=== PATIENT | female | born 1985 | race Caucasian/White ===

== ENCOUNTER 2018-06-27 16:47 | Emergency (ER) | payer BC ==
--- NOTE | 2018-06-27 18:01 | RAD ---
Indication: 11 weeks 4 days gestation based on April 07, 2018 LMP. Comparison: No relevant prior exams available on the [facility] for comparison. Technique: Transvaginal pelvic ultrasound. obstetrical ultrasound. Report: 10.7 x 5.8 x 6.8 cm anteverted uterus. Solitary intrauterine gestational sac with mean diameter of 3.70 cm. Single pole visualized with 1.59 cm crown-rump length corresponding to 8 weeks 0 days gestation. No movement or cardiac activity visualized. No yolk sac visualized. No perigestational hemorrhage evident. Small volume of fluid visualized at the cervix. Physiologic trace volume of free fluid in the cul-de-sac. Unremarkable 2.3 x 1.9 x 1.2 cm RIGHT ovary and 2.8 x 1.4 x 1.1 cm LEFT ovary. No extraovarian adnexal region lesions evident. IMPRESSION: #. The constellation of findings is consistent with a nonviable first trimester intrauterine gestation.
--- NOTE | 2018-06-27 18:21 | ED ---
- HPI Summary HPI Summary: Patient is a 32 y/o F w/ c/o vaginal bleeding onsetting an hour ago. She is 11 weeks , A0. LNMP was four months ago, patient describes bleeding as period-like, noting deanna blood and large clots. She has not had US yet, denies complications with previous . Patient takes a pre-karthikeyan vitamin, goes to [facility]. She denies abdominal pain but notes some cramping. Lower back soreness is also endorsed. On triage, associated severity is 2/10, nothing is noted to aggravate/alleviate Sx. Home medications and allergies are reviewed. - History of Current Complaint Chief Complaint: EDOBProblems Stated Complaint: 11 WKS PREG/BLEEDING Time Seen by Provider: 06/27/18 17:14 Hx Obtained From: Patient Onset/Duration: Started Hours Ago - 1 hour, Still Present Timing: Constant, Lasting Hours - 1 hour Severity: Mild - 2/10 Current Severity: Mild - 2/10 Pain Intensity: 2 Character: Cramping Aggravating Factors: Nothing Alleviating Factors: Nothing Associated Signs and Symptoms: Positive: Back Pain - lower back soreness, Vaginal Bleeding or Discharge - bleeding - Assessment SAB: 0 IEA: 0 - Additional Pertinent History Maternal Blood Type and Rh: O Positive - Allergies/Home Medications Allergies/Adverse Reactions: Allergies Allergy/AdvReac Type Severity Reaction Status Date / Time No Known Allergies Allergy Verified 02/21/16 22:21 PMH/Surg Hx/FS Hx/Imm Hx Sensory History: Denies: Hx Legally Blind, Hx Deafness Opthamlomology History: Denies: Hx Legally Blind EENT History: Denies: Hx Deafness Infectious Disease History: No Infectious Disease History: Denies: Traveled Outside the [place] in Last 30 Days - Family History Known Family History: Negative: Blood Disorder - Social History Alcohol Use: None Substance Use Type: Reports: None Smoking Status (MU): Never Smoked Tobacco Review of Systems Negative: Abdominal Pain Positive: other - vaginal bleeding and abdominal cramping Positive: Other - lower back soreness All Other Systems Reviewed And Are Negative: Yes Physical Exam - Summary Physical Exam Summary: Appearance: Well appearing, no pain distress Skin: warm, dry, reflects adequate perfusion Head/face: normal Eyes: EOMI, STEPHON ENT: mucous membranes moist Neck: supple, non-tender Respiratory: CTA, breath sounds present Cardiovascular: RRR, pulses symmetrical Abdomen: non-tender, soft Bowel Sounds: present Musculoskeletal: normal, strength/ROM intact Neuro: normal, sensory motor intact, A&Ox3 Pelvic Exam: minimal dark blood, cervix closed, one clot at cervix. - Physical Exam Triage Information Reviewed: Yes Vital Signs On Initial Exam: Initial Vitals Temp Pulse Resp BP Pulse Ox 97.3 F 102 16 144/88 98 06/27/18 16:49 06/27/18 16:49 06/27/18 16:49 06/27/18 16:49 06/27/18 16:49 Vital Signs Reviewed: Yes Diagnostics - Vital Signs Vital Signs Temp Pulse Resp BP Pulse Ox 06/27/18 16:49 97.3 F 102 16 144/88 98 - Laboratory Lab Statement: Any lab studies that have been ordered have been reviewed, and results considered in the medical decision making process. - Ultrasound No standard instances Ultrasound Interpretation Completed By: Radiologist Summary of Ultrasound Findings: IMPRESSION: #. The constellation of findings is consistent with a nonviable first trimester. intrauterine gestation. This report was reviewed by ED physician. Re-Evaluation - Re-Evaluation First Eval Re-Evaluation Time: 18:24 Comment: Results of US were discussed with patient. She will be discharged and follow up with [facility]. Course/Dx - Course Course Of Treatment: Ultrasound consistent with blighted ovum. On prior laboratories patient was found to be O+. She is having minimal bleeding and discomfort at this time. 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 - Differential Diagnosis/HQI/PQRI: Incomplete , Missed , Spontaneous , Threatened , Ectopic - Diagnoses Provider Diagnoses: Blighted ovum, Incomplete Discharge - Sign-Out/Discharge Documenting (check all that apply): Patient Departure - discharge - Discharge Plan Condition: Improved Disposition: HOME Patient Education Materials: Miscarriage (ED) Referrals: Mere Valdez NP [Primary Care Provider] - Additional Instructions: Follow up with [facility] [place]. Return with heavy bleeding, lightheadedness/ weakness, uncontrolled pain, worse or other concerns as discussed. Tylenol, ibuprofen and fluids may help. - Billing Disposition and Condition Condition: IMPROVED Disposition: Home - Attestation Statements Document Initiated by Scribe: Yes Documenting Scribe: Marko Francisco Provider For Whom Scribe is Documenting (Include Credential): Dr Corral Scribe Attestation: I, Marko Francisco, scribed for Dr Corral on 06/27/18 at 1905. Scribe Documentation Reviewed: Yes Provider Attestation: The documentation as recorded by the scribe, Marko Francisco accurately reflects the service I personally performed and the decisions made by me, Dr Corral
[2018-06-27 18:52] VITALS: BP 127/97
== END 2018-06-27 18:51 | disposition home or self-care (01) ==
LOC: ED 16:47
DX: O02.0 Blighted ovum and nonhydatidiform mole (principal); O08.9 Unspecified complication following an ectopic and molar pregnancy; O03.4 Incomplete spontaneous abortion without complication; M54.9 Dorsalgia, unspecified; R42 Dizziness and giddiness
CPT/HCPCS: 36415; 76801; 84702; 99282

== ENCOUNTER 2019-11-23 05:41 | Inpatient (IN) | payer BC ==
--- OUTSIDE RECORDS SUMMARY | 2019-11-23 05:45 | XMS REPORT | Continuity of Care Document ---
:1985 External Reference #:[id number] Author Name Td Clark M.D. 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 0.4-25mg Chewtabs Aspirin 1 by mouth every Unknown 81mg Chewtabs day Medications Administered in Office Medication SIG Qnty Indications Ordering Provider Date PT SCRN Tbco Id as Non User Nisha Renner CNM 06/30/2018 Injection PT SCRN Tbco Id as Non User Lissette Fraser MD 10/09/2017 Injection Immunizations CPT Code Status Date Vaccine Lot # [id number] Given 09/15/2019 Tetnus, Diptheria Toxoids And Acellular Pertussis, [id number] PT > 7Yrs Old [id number] Given 01/04/2016 Tetnus, Diptheria Toxoids And Acellular Pertussis, [id number] PT > 7Yrs Old Vital Signs Date Vital Result Comment 05/13/2019 2:44pm BP Systolic 124 mmHg BP Diastolic 82 mmHg Height 63.5 inches 5'3.50" Weight 245.00 lb BMI (Body Mass Index) 42.7 kg/m2 Last Menstrual Period 0489434 3 Parity 1 06/30/2018 10:08am BP Systolic 128 mmHg BP Diastolic 76 mmHg Height 63.5 inches 5'3.50" Weight 236.00 lb BMI (Body Mass Index) 41.1 kg/m2 Last Menstrual Period [id number] 2 Parity 1 Results Test Acquired Date Facility Test Result H/L Range Note Laboratory test 09/15/2019 [facility] Glucose 1 HR 116 mg/dL Normal 70-160 1 [place] [address] Post Prandial [phone] CBC With No 09/15/2019 [facility] White Blood 10.6 Normal 3.5- 10.8 [place] [address] Count 10^3/uL [phone] Red Blood Count 3.81 10^6/uL Normal 3.70-4.87 Hemoglobin 11.3 g/dL Low 12.0-16.0 Hematocrit 34 % Low 35-47 Mean Corpuscular Volume 89 fL Normal 80-97 Mean Corpuscular Hemoglobin 30 pg Normal 27-31 Mean Corpuscular HGB Conc 33 g/dL Normal 31-36 Red Cell Distribution Width 14 % Normal 10-15 Platelet Count 298 10^3/uL Normal 150-450 Mean Platelet Volume 9.3 fL Normal 7.4-10.4 Tot Prot 24HR Urine 07/30/2019 [facility] Urine Collection 24 [place] [address] Time OB [phone] Urine Total Volume OB 1800 mL Ur TP Concentration Obstetric 8 mg/dL Ur Tot Protein/24Hr Obstetric 144 mg/24Hr Normal 0-165 CBC With No 07/06/2019 [facility] White Blood 11.4 10^3/uL High 3.5-10.8 [place] [address] Count [phone] Red Blood Count 4.23 10^6/uL Normal 3.70-4.87 Hemoglobin 12.3 g/dL Normal 12.0-16.0 Hematocrit 37 % Normal 35-47 Mean Corpuscular Volume 88 fL Normal 80-97 Mean Corpuscular Hemoglobin 29 pg Normal 27-31 Mean Corpuscular HGB Conc 33 g/dL Normal 31-36 Red Cell Distribution Width 14 % Normal 10-15 Platelet Count 295 10^3/uL Normal 150-450 Mean Platelet Volume 9.2 fL Normal 7.4-10.4 Laboratory test 07/06/2019 [facility] Uric Acid 4.5 mg/dL Normal 2.3-6.6 [address] [place] [address] [phone] Comp Metabolic 07/06/2019 [facility] Sodium 137 mmol/L Normal 135-145 Panel [place], [place] [id number] [phone] Potassium 4.0 mmol/L Normal 3.5-5.0 Chloride 106 mmol/L Normal 101-111 Co2 Carbon Dioxide 23 mmol/L Normal 22-32 Anion Gap 8 mmol/L Normal 2-11 Glucose 117 mg/dL High 70-100 Blood Urea Nitrogen 11 mg/dL Normal 6-24 Creatinine 0.55 mg/dL Normal 0.51-0.95 BUN/Creatinine Ratio 20.0 Normal 8-20 Calcium 9.6 mg/dL Normal 8.6-10.3 Total Protein 6.8 g/dL Normal 6.4-8.9 Albumin 3.9 g/dL Normal 3.2-5.2 Globulin 2.9 g/dL Normal 2-4 Albumin/Globulin Ratio 1.3 Normal 1-3 Total Bilirubin 0.30 mg/dL Normal 0.2-1.0 Alkaline Phosphatase 54 U/L Normal 34-104 Alt 9 U/L Normal 7-52 Ast 11 U/L Low 13-39 Egfr Non- 128.1 >60 Egfr 155.0 >60 3 Laboratory 06/17/2019 [facility] Glucose 1 HR 88 mg/dL Normal 70-160 4 [place] [address] Post Prandial [phone] Urine Drug 06/09/2019 [facility] Urine Negative 5 Comp 20 [place] [address] Amphetamine ng/mL [phone] Urine Barbiturates Negative ng/mL 6 Urine Benzodiazepines Negative ng/mL 7 Urine Cocaine Negative ng/mL 8 Urine Phencyclidine Negative ng/mL Cutoff: 25 Urine Tetrahydrocannabinol Negative ng/mL Cutoff: 50 9 Creatinine, Urine 165.8 mg/dL Specific [place] 1.016 pH 6.1 Oxidants Negative 10 Adulterants Comment Normal Codeine, Ur Not Detected ng/mL Cutoff: 25 11 Jrfihva-6-oqzr-glucuronide, Ur Not Detected ng/mL 12 Morphine, Ur Not Detected ng/mL Cutoff: 25 13 Nbpmbcyy-7-kezh-glucuronide, U Not Detected ng/mL 14 6-monoacetylmorphine, Ur Not Detected ng/mL Cutoff: 25 15 Hydrocodone, Ur Not Detected ng/mL Cutoff: 25 16 Norhydrocodone, Ur Not Detected ng/mL Cutoff: 25 17 Dihydrocodeine, Ur Not Detected ng/mL Cutoff: 25 18 Hydromorphone, Ur Not Detected ng/mL Cutoff: 25 19 Wtyrbliakoahd9cqjwpummlmjqext Not Detected ng/mL 20 Oxycodone, Ur Not Detected ng/mL Cutoff: 25 21 Noroxycodone, Ur Not Detected ng/mL Cutoff: 25 22 Oxymorphone, Ur Not Detected ng/mL Cutoff: 25 23 Tquoluiofyt-1-lvoh-glucuronide Not Detected ng/mL 24 Noroxymorphone, Ur Not Detected ng/mL Cutoff: 25 25 Fentanyl, Ur Not Detected ng/mL Cutoff: 2 26 Norfentanyl, Ur Not Detected ng/mL Cutoff: 2 27 Meperidine, Ur Not Detected ng/mL Cutoff: 25 28 Normeperidine, Ur Not Detected ng/mL Cutoff: 25 29 Naloxone, Ur Not Detected ng/mL Cutoff: 25 30 Zwxtchbi-7-wnxg-glucuronide, U Not Detected ng/mL 31 Methadone, Ur Not Detected ng/mL Cutoff: 25 32 Eddp, Ur Not Detected ng/mL Cutoff: 25 33 Propoxyphene, Ur Not Detected ng/mL Cutoff: 25 34 Norpropoxyphene, Ur Not Detected ng/mL Cutoff: 25 35 Tramadol, Ur Not Detected ng/mL Cutoff: 25 36 O-desmethyltramadol, Ur Not Detected ng/mL Cutoff: 25 37 Tapentadol, Ur Not Detected ng/mL Cutoff: 25 38 N-desmethyltapentadol, Ur Not Detected ng/mL Cutoff: 50 39 Odpxtzmnia-prfk-xjloiawzenw, U Not Detected ng/mL 40 Buprenorphine, Ur Not Detected ng/mL Cutoff: 5 41 Norbuprenorphine, Ur Not Detected ng/mL Cutoff: 5 42 Norbuprenorphine glucuronide Not Detected ng/mL Cutoff: 20 43 Opioid Interpretation See Comment 44 GC/Chlamydia Dna 06/09/2019 [facility] Chlamydia [place] [address] trachomatis Carol [phone] Neisseria gonorrhoeae (GC) Carol Negative Negative PNL No 05/13/2019 [facility] Rubella Screen Immune Immune 45 [place] [address] [phone] Hemoglobin A1c 5.3 % Normal 4.0-5.6 46 Hepatitis B Surface Ag Negative Negative 47 Syphillis Igg W/Reflex RPR Negative Negative 48 CBC With No 05/13/2019 [facility] White Blood 9.0 10^3/uL Normal 3.5-10.8 [place] [address] Count [phone] Red Blood Count 4.36 10^6/uL Normal 3.70-4.87 Hemoglobin 13.1 g/dL Normal 12.0-16.0 Hematocrit 39 % Normal 35-47 Mean Corpuscular Volume 89 fL Normal 80-97 Mean Corpuscular Hemoglobin 30 pg Normal 27-31 Mean Corpuscular HGB Conc 34 g/dL Normal 31-36 Red Cell Distribution Width 14 % Normal 10-15 Platelet Count 324 10^3/uL Normal 150-450 Mean Platelet Volume 9.4 fL Normal 7.4-10.4 Type And Screen 05/13/2019 [facility] Patient [place] [address] [phone] Antibody Screen NEGATIVE Lead 05/13/2019 [facility] Lead,Venous, B < 1.0 g/dL 0.0- 4.9 [address] [place] [address] [phone] Venous/Capillary Venous Submitting Laboratory Phone [phone] HIV 1&2 p24 05/13/2019 [facility] HIV 4th [place] [address] Generation [phone] Laboratory 05/13/2019 [facility] TSH 0.90 mcIU/mL Normal 0.34- 5.60 51 [place] [address] [phone] T4 Free 0.86 ng/dL Normal 0.61-1.12 52 Urine Culture And 05/13/2019 [facility] Urine Culture SEE RESULT [address] [place] [address] BELOW [phone] 1 [id number] 2 [id number] 3 Because ethnic data is not always readily available, this report includes an eGFR for both -Americans and non- Americans. The National Kidney Disease Education Program (NKDEP) does not endorse the use of the MDRD equation for patients that are not between the ages of 18 and 70, are , have extremes of body size, muscle mass, or nutritional status, or are non- or non-. According to the National Kidney Foundation, irrespective of diagnosis, the stage of the disease is based on the level of kidney function: Stage Description GFR(mL/min/1.73 m(2)) 1 Kidney damage with normal or decreased GFR 90 2 Kidney damage with mild decrease in GFR 60-89 3 Moderate decrease in GFR 30-59 4 Severe decrease in GFR 15-29 5 Kidney failure <15 (or dialysis) 4 [id number] 5 REFERENCE VALUE Cutoff: 500 6 REFERENCE VALUE Cutoff: 200 7 REFERENCE VALUE Cutoff: 100 8 REFERENCE VALUE Cutoff: 150 9 ADDITIONAL INFORMATION This report is intended for use in clinical monitoring or management of patients. It is not intended for use in employment-related testing. Test Performed by: [facility] [address] [place] [address] Brisket Puller: Jaskaran Smith M.D. Ph.D.; CLIA# [id number] 10 REFERENCE VALUE Cutoff: 200 mg/L 11 Tylenol 3 12 Metabolite of codeine REFERENCE VALUE Cutoff: 100 13 Syeda Nascimento, Contin; Also a minor metabolite (10%) of codeine and can be seen in low concentrations (<2,000 ng/mL) with poppy seed ingestion. 14 Metabolite of morphine REFERENCE VALUE Cutoff: 100 15 Metabolite of heroin 16 Lortab, [place], Vicodin; Also a very minor metabolite of codeine and impurity (<1%) of oxycodone. 17 Metabolite of hydrocodone 18 Metabolite of hydrocodone 19 Dilaudid, Exalgo; Also a metabolite of hydrocodone and a minor (<5%) metabolite of morphine. 20 Metabolite of hydromorphone REFERENCE VALUE Cutoff: 100 21 Endocet, Percocet, Oxycontin 22 Metabolite of oxycodone 23 Numorphan, Opana; Also a metabolite of oxycodone. 24 Metabolite of oxymorphone REFERENCE VALUE Cutoff: 100 25 Metabolite of oxymorphone 26 Actiq, Duragesic, [place] 27 Metabolite of fentanyl 28 Demerol 29 Metabolite of meperidine 30 Narcan 31 Metabolite of naloxone REFERENCE VALUE Cutoff: 100 32 Dolophine 33 Metabolite of methadone 34 Darvon, Darvocet 35 Metabolite of propoxyphene 36 Tradol, Ultram, Ultracet 37 Metabolite of tramadol 38 Nucynta 39 Metabolite of tapentadol 40 Metabolite of tapentadol REFERENCE VALUE Cutoff: 100 41 Buprenex, Suboxone 42 Metabolite of buprenorphine 43 Metabolite of buprenorphine 44 No opioids were detected. The absence of expected drug(s) and/or drug metabolite(s) may indicate non-compliance, altered pharmacokinetics, inappropriate timing of specimen collection relative to drug administration, diluted/adulterated urine, or limitations of testing. ADDITIONAL INFORMATION This test was developed and its performance characteristics determined by [facility] in a manner consistent with CLIA requirements. This test has not been cleared or approved by the U.S. Food and Drug Administration. 45 [id number] 46 Therapeutic target for the treatment of diabetes mellitus patients is <7% HBA1C, and in selective patients <6.0%. Please refer to [place] [employer] diabetic care guidelines for further information. 47 [id number] 48 [id number] 49 ADDITIONAL INFORMATION Testing performed by Inductively Coupled Plasma-Mass Spectrometry (ICP-MS). This test was developed and its performance characteristics determined by [facility] in a manner consistent with CLIA requirements. This test has not been cleared or approved by the U.S. Food and Drug Administration. 50 Test Performed by: [facility] - [address] [address] Brisket Puller: Jaskaran Smith M.D. Ph.D.; CLIA# [id number] 51 [id number] 53 SEE RESULT BELOW Name: AZEEM FLORENCE : [address]: Daisha Alston CNM Acct: [id number] Unit: [id number] AGE: 33 Location: [facility] Re05/13/19 SEX: F Status: REG REF SPEC: [id number] KATHRINE: 05/13/19-[address]: Daisha Alston CNM REQ: [id number] RECD: 05/14/19 STATUS: COMP _ SOURCE: URINE SPDESC: ORDERED: Urine Culture COMMENTS: [id number] Procedure Result Reported Site Urine Culture Final 05/15/19- 1319 ML No growth of clinically significant organisms * ML - Main Lab . END OF REPORT DEPARTMENT OF PATHOLOGY, [address] [place] [address] Geoffrey Lopez M.D. Director [facility] # [id number] Procedures Date Code Description Status 11/03/2019 38438 Non-Stress Test Completed 10/27/2019 82071 Non-Stress Test Completed 09/29/2019 19329 Echography Uterus Follow-Up Or Repeat Completed 09/01/2019 14618 Echography Uterus Follow-Up Or Repeat Completed 08/03/2019 38558 Echography Uterus Complete Completed Medical Devices Description No Information Available Encounters Description No Information Available Assessments Date Code Description Provider 11/03/2019 O10.013 Pre-existing essential hypertension Td Clark M.D. complicating , third trimester 10/27/2019 O34.211 Maternal care for low transverse scar from Lissette Fraser MD previous delivery 10/27/2019 O10.013 Pre-existing essential hypertension Lissette Fraser MD complicating , third trimester 10/13/2019 O34.211 Maternal care for low transverse scar from Patsy Griffith MD previous delivery 09/29/2019 O10.012 Pre-existing essential hypertension Vik Martinez JR, DO complicating , second trimester 09/29/2019 O34.211 Maternal care for low transverse scar from Vik Martinez JR, DO previous delivery 09/29/2019 O99.212 Obesity complicating , second Vik Martinez JR DO trimester 09/29/2019 O10.012 Pre-existing essential hypertension Ultrasounds complicating , second trimester 09/29/2019 O99.212 Obesity complicating , second Ultrasounds trimester 09/15/2019 Z36.9 Encounter for screening, Td Clark M.D. unspecified 09/15/2019 Z36.9 Encounter for screening, Laboratory unspecified 09/15/2019 Z23 Encounter for immunization Lissette Fraser MD 09/15/2019 O34.211 Maternal care for low transverse scar from Lissette Fraser MD previous delivery 09/01/2019 O10.012 Pre-existing essential hypertension Td Clark M.D. complicating , second trimester 09/01/2019 Z34.82 Encounter for supervision of other normal Td Clark M.D. , second trimester 09/01/2019 O99.212 Obesity complicating , second Td Clark M.D. trimester 09/01/2019 O10.012 Pre-existing essential hypertension Ultrasounds complicating , second trimester 09/01/2019 O99.212 Obesity complicating , second Ultrasounds trimester 08/21/2019 O34.211 Maternal care for low transverse scar from Vik Martinez JR, DO previous delivery 08/03/2019 O34.211 Maternal care for low transverse scar from Quynh Zhong MD previous delivery 08/03/2019 Z36.3 Encounter for screening for Quynh Zhong MD malformations 08/03/2019 O10.012 Pre-existing essential hypertension Quynh Zhong MD complicating , second trimester 08/03/2019 Z36.3 Encounter for screening for Ultrasounds malformations 07/06/2019 O34.211 Maternal care for low transverse scar from Lissette Fraser MD previous delivery 07/06/2019 O99.212 Obesity complicating , second Lissette Fraser MD trimester 07/06/2019 O10.012 Pre-existing essential hypertension Lissette Fraser MD complicating , second trimester 06/17/2019 Z36.9 Encounter for screening, Lissette Fraser MD unspecified 06/17/2019 Z36.9 Encounter for screening, Laboratory unspecified 06/09/2019 O99.210 Obesity complicating , unspecified Vik Martinez JR, DO trimester 05/13/2019 O99.211 Obesity complicating , first Daisha Alston CNM trimester Plan of Treatment Future Appointment(s):12/04/2019 2:40 pm - Td Clark M.D. at [facility]11/25/2019 2:40 pm - Nurses at [facility]11/17/2019 3:00 pm - Nurses at [facility]11/12/2019 3:30 pm - Lissette Fraser MD at [facility]11/12/2019 3:00 pm - Ultrasounds at [facility]11/17/2019 3:30 pm - Vik Martinez JR, DO at [facility]12/16/2019 10:45 am - Jennifer Barahona CNM at [facility]12/08 7:45 am - Quynh Zhong MD at [place] 1314311/25/2019 3:00 pm - Quynh Zhong MD at [facility]06/30/2018 - NEMESIO IslasND02.1 Missed Functional Status Description No Information Available Mental Status Description No Information Available Referrals Description No Information Available
--- OUTSIDE RECORDS SUMMARY | 2019-11-23 05:45 | XMS REPORT | Continuity of Care Document ---
:1985 External Reference #:[id number] Author Name Quynh Zhong MD (transmitted by agent of provider Collette Marshall) Address [address] [facility] [place] [address] Care Team Providers Name Role Phone Mina Wniters M.D. 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 Team Information Ad Operations Associate [phone] Medicine Problems Description No Information Available Social History Type Date Description Comments Sex Unknown Tobacco Use Start: Unknown Patient has never smoked Smoking Status Reviewed: 11/20/19 Patient has never smoked Allergies, Adverse Reactions, [...] CPT Code Status Date Vaccine Lot # [id number] Given 09/15/2019 Tetnus, Diptheria Toxoids And Acellular Pertussis, [id number] PT > 7Yrs Old [address] Given 01/04/2016 Tetnus, Diptheria Toxoids And Acellular Pertussis, [id number] PT > 7Yrs Old Vital Signs Date Vital Result Comment 05/13/2019 2:44pm BP Systolic 124 mmHg BP Diastolic 82 mmHg Height 63.5 inches 5'3.50" Weight 245.00 lb BMI (Body Mass Index) 42.7 kg/m2 Last Menstrual Period 9189647 3 Parity 1 06/30/2018 10:08am BP Systolic 128 mmHg BP Diastolic 76 mmHg Height 63.5 inches 5'3.50" Weight 236.00 lb BMI (Body Mass Index) 41.1 kg/m2 Last Menstrual Period 4307242 2 Parity 1 Results Test Acquired Date Facility Test Result H/L Range Note Laboratory test 11/20/2019 [facility] Uric Acid <pending> [place] [address] [phone] Laboratory test 11/17/2019 [facility] Genital For SEE RESULT 1 [place] [address] GRP B Strep BELOW [phone] Only Laboratory test 09/15/2019 [facility] Glucose 1 HR 116 mg/dL Normal 70-160 2 [place] [address] Post Prandial [phone] CBC With No 09/15/2019 [facility] White Blood 10.6 Normal 3.5- 10.8 [place] [address] Count 10^3/uL [phone] Red Blood Count 3.81 10^6/uL Normal 3.70-4.87 [...] Normal 7.4-10.4 Tot Prot 24HR Urine 07/30/2019 [facility] Urine Collection 24 [place] [address] Time OB [phone] Urine Total Volume OB 1800 mL Ur TP Concentration Obstetric 8 mg/dL Ur Tot Protein/24Hr Obstetric 144 mg/24Hr Normal 0-165 CBC With No 07/06/2019 [facility] White Blood 11.4 10^3/uL High 3.5-10.8 [place] [address] Count [phone] Red Blood Count 4.23 10^6/uL Normal 3.70-4.87 Hemoglobin 12.3 g/dL Normal 12.0-16.0 Hematocrit 37 % Normal 35-47 Mean Corpuscular Volume 88 fL Normal 80-97 Mean Corpuscular Hemoglobin 29 pg Normal 27-31 Mean Corpuscular HGB Conc 33 g/dL Normal 31-36 Red Cell Distribution Width 14 % Normal 10-15 Platelet Count 295 10^3/uL Normal 150-450 Mean Platelet Volume 9.2 fL Normal 7.4-10.4 Laboratory test 07/06/2019 [facility] Uric Acid 4.5 mg/dL Normal 2.3-6.6 3 [place] [address] [phone] Comp Metabolic 07/06/2019 [facility] Sodium 137 mmol/L Normal 135-145 [place] [address] [phone] Potassium 4.0 mmol/L Normal 3.5-5.0 Chloride 106 [...] Egfr Non- 128.1 >60 Egfr 155.0 >60 4 Laboratory 06/17/2019 [facility] Glucose 1 HR 88 mg/dL Normal 70-160 5 [place] [address] Post Prandial [phone] Urine Drug 06/09/2019 [facility] Urine Negative 6 Comp 20 [place] [address] Amphetamine ng/mL [phone] Urine Barbiturates Negative ng/mL 7 Urine Benzodiazepines Negative ng/mL 8 Urine Cocaine Negative ng/mL 9 Urine Phencyclidine Negative ng/mL Cutoff: 25 Urine Tetrahydrocannabinol Negative ng/mL Cutoff: 50 10 Creatinine, Urine 165.8 mg/dL Specific [place] 1.016 pH 6.1 Oxidants Negative 11 Adulterants Comment Normal Codeine, Ur Not Detected ng/mL Cutoff: 25 12 Ykwpytz-3-rsjy-glucuronide, Ur Not Detected ng/mL 13 Morphine, Ur Not Detected ng/mL Cutoff: 25 14 Aivmryaz-8-gcok-glucuronide, U Not Detected ng/mL 15 6-monoacetylmorphine, Ur Not Detected ng/mL Cutoff: 25 16 Hydrocodone, Ur Not Detected ng/mL Cutoff: 25 17 Norhydrocodone, Ur Not Detected ng/mL Cutoff: 25 18 Dihydrocodeine, Ur Not Detected ng/mL Cutoff: 25 19 Hydromorphone, Ur Not Detected ng/mL Cutoff: 25 20 Zjzigymoagzqt4exstazavnisuubr Not Detected ng/mL 21 Oxycodone, Ur Not Detected ng/mL Cutoff: 25 22 Noroxycodone, Ur Not Detected ng/mL Cutoff: 25 23 Oxymorphone, Ur Not Detected ng/mL Cutoff: 25 24 Fqvgbtfxgxa-2-sfsa-glucuronide Not Detected ng/mL 25 Noroxymorphone, Ur Not Detected ng/mL Cutoff: 25 26 Fentanyl, Ur Not Detected ng/mL Cutoff: 2 27 Norfentanyl, Ur Not Detected ng/mL Cutoff: 2 28 Meperidine, Ur Not Detected ng/mL Cutoff: 25 29 Normeperidine, Ur Not Detected ng/mL Cutoff: 25 30 Naloxone, Ur Not Detected ng/mL Cutoff: 25 31 Psavxycq-1-lzkw-glucuronide, U Not Detected ng/mL 32 Methadone, Ur Not Detected ng/mL Cutoff: 25 33 Eddp, Ur Not Detected ng/mL Cutoff: 25 34 Propoxyphene, Ur Not Detected ng/mL Cutoff: 25 35 Norpropoxyphene, Ur Not Detected ng/mL Cutoff: 25 36 Tramadol, Ur Not Detected ng/mL Cutoff: 25 37 O-desmethyltramadol, Ur Not Detected ng/mL Cutoff: 25 38 Tapentadol, Ur Not Detected ng/mL Cutoff: 25 39 N-desmethyltapentadol, Ur Not Detected ng/mL Cutoff: 50 40 Zrfdnngtis-saqm-gtvuuxgcqdq, U Not Detected ng/mL 41 Buprenorphine, Ur Not Detected ng/mL Cutoff: 5 42 Norbuprenorphine, Ur Not Detected ng/mL Cutoff: 5 43 Norbuprenorphine glucuronide Not Detected ng/mL Cutoff: 20 44 Opioid Interpretation See Comment 45 GC/Chlamydia Dna 06/09/2019 [facility] Chlamydia Negative [place] [address] trachomatis Carol [phone] Neisseria gonorrhoeae (GC) Carol Negative Negative 1 SEE RESULT BELOW Name: AZEEM FLORENCE : [address]: Vik Martinez DO Acct: [id number] Unit: [id number] AGE: 34 Location: [facility] Re11/17/19 SEX: F Status: REG REF SPEC: [id number] KATHRINE: 11/17/19-[address] [facility] [address]: Vik Martinez DO REQ: [id number] RECD: 11/17/19-114 STATUS: COMP _ SOURCE: CER/VAG/RE SPDESC: ORDERED: Grp B Strp Scrn COMMENTS: [id number] QUERIES: Is Patient Penicillin Allergic? N Is patient penicillin allergic and/or sensitivities needed? N Provider Requisition # C77#[id number] Procedure Result Reported Site Group B Strep Culture Screen Final 11/19/19- 0900 ML Group B Strep Screen Negative * ML - Main Lab . END OF REPORT DEPARTMENT OF PATHOLOGY, [address] [place] [address] Geoffrey Lopez M.D. Director [facility] # [id number] 2 [id number] 4 Because ethnic data is not always readily [...] 15-29 5 Kidney failure <15 (or dialysis) 5 [id number] 6 REFERENCE VALUE Cutoff: 500 7 REFERENCE VALUE Cutoff: 200 8 REFERENCE VALUE Cutoff: 100 9 REFERENCE VALUE Cutoff: 150 10 ADDITIONAL INFORMATION This report is intended for use in clinical monitoring or management of patients. It is not intended for use in employment-related testing. Test Performed by: [facility] - [address] [address] Waste Oil Pumper: Jaskaarn Smith M.D. Ph.D.; CLIA# [id number] 11 REFERENCE VALUE Cutoff: 200 mg/L 12 Tylenol 3 13 Metabolite of codeine REFERENCE VALUE Cutoff: 100 14 Syeda Nascimento, Contin; Also a minor metabolite (10%) of codeine and can be seen in low concentrations (<2,000 ng/mL) with poppy seed ingestion. 15 Metabolite of morphine REFERENCE VALUE Cutoff: 100 16 Metabolite of heroin 17 Lortab, Mereta, Vicodin; Also a very minor metabolite of codeine and impurity (<1%) of oxycodone. 18 Metabolite of hydrocodone 19 Metabolite of hydrocodone 20 Dilaudid, Exalgo; Also a metabolite of hydrocodone and a minor (<5%) metabolite of morphine. 21 Metabolite of hydromorphone REFERENCE VALUE Cutoff: 100 22 Endocet, Percocet, Oxycontin 23 Metabolite of oxycodone 24 Numorphan, Opana; Also a metabolite of oxycodone. 25 Metabolite of oxymorphone REFERENCE VALUE Cutoff: 100 26 Metabolite of oxymorphone 27 Actiq, Duragesic, Fentora 28 Metabolite of fentanyl 29 Demerol 30 Metabolite of meperidine 31 Narcan 32 Metabolite of naloxone REFERENCE VALUE Cutoff: 100 33 Dolophine 34 Metabolite of methadone 35 Darvon, Darvocet 36 Metabolite of propoxyphene 37 Tradol, Ultram, Ultracet 38 Metabolite of tramadol 39 Nucynta 40 Metabolite of tapentadol 41 Metabolite of tapentadol REFERENCE VALUE Cutoff: 100 42 Buprenex, Suboxone 43 Metabolite of buprenorphine 44 Metabolite of buprenorphine 45 No opioids were detected. The absence of expected drug(s) and/or drug metabolite(s) may indicate non-compliance, altered pharmacokinetics, inappropriate timing of specimen collection relative to drug administration, diluted/adulterated urine, or limitations of testing. ADDITIONAL INFORMATION This test was developed and its performance characteristics determined by [facility] in a manner consistent with CLIA requirements. This test has not been cleared or approved by the U.S. Food and Drug Administration. Procedures Date Code Description Status 11/12/2019 46427 Biophysical Profile Without Non Stress Test Completed 11/12/2019 29919 Echography Uterus Follow-Up Or Repeat Completed 11/03/2019 03837 Non-Stress Test Completed 10/27/2019 27050 Non-Stress Test Completed 09/29/2019 81503 Echography Uterus Follow-Up Or Repeat Completed 09/01/2019 64573 Echography Uterus Follow-Up Or Repeat Completed 08/03/2019 63882 Echography Uterus Complete Completed Medical Devices Description No Information Available Encounters Description No Information Available Assessments Date Code Description Provider 11/17/2019 O34.211 Maternal care for low transverse scar from Vik Martinez JR, DO previous delivery 11/12/2019 O10.013 Pre-existing essential hypertension Lissette Fraser MD complicating , third trimester 11/12/2019 O99.213 Obesity complicating , third Lissette Fraser MD trimester 11/12/2019 O99.213 Obesity complicating , third Lissette Fraser MD trimester 11/12/2019 O10.013 Pre-existing essential hypertension Ultrasounds complicating , third trimester 11/12/2019 O34.211 Maternal care for low transverse scar from Lissette Fraser MD previous delivery 11/12/2019 O99.213 Obesity complicating , third Ultrasounds trimester 11/12/2019 O10.013 Pre-existing essential hypertension Lissette Fraser MD complicating , third trimester 11/03/2019 O10.013 Pre-existing essential hypertension Td Clark [...] O99.212 Obesity complicating , second Vik Martinez JR, DO trimester 09/29/2019 O10.012 Pre-existing essential hypertension [...] , unspecified Vik Martinez JR, DO trimester Plan of Treatment Future Appointment(s):12/09/2019 7:45 am - [place] [facility] [place]:00 am - Quynh Zhong MD at [facility]12/04/2019 2:40 pm - Td Clark M.D. at [facility]12/16/2019 10:45 am - Jennifer Barahona CNM at [facility]12/09/2019 7:45 am - Quynh Zh[place] [facility] [place] Functional Status Description No Information Available Mental Status Description No Information Available Referrals Description No Information Available
--- OUTSIDE RECORDS SUMMARY | 2019-11-23 05:45 | XMS REPORT | Continuity of Care Document ---
:1985 External Reference #:[id number] Author Name Nurses (transmitted by agent of provider Alysha Fletcher) Care Team Providers Name Role Phone Mina Winters M.D. 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 Team Information Review Trainer [phone] Medicine Problems Description No Information Available Social [...] CPT Code Status Date Vaccine Lot # [id number] Given 09/15/2019 Tetnus, Diptheria Toxoids And Acellular Pertussis, DC924 PT > 7Yrs Old [address] Given 01/04/2016 Tetnus, Diptheria Toxoids And Acellular Pertussis, [id number] PT > 7Yrs Old Vital Signs Date Vital Result Comment 05/13/2019 2:44pm BP Systolic 124 mmHg BP Diastolic 82 mmHg Height 63.5 inches 5'3.50" Weight 245.00 lb BMI (Body Mass Index) 42.7 kg/m2 Last Menstrual Period 4864855 3 Parity 1 06/30/2018 10:08am BP Systolic 128 mmHg BP Diastolic 76 mmHg Height 63.5 inches 5'3.50" Weight 236.00 lb BMI (Body Mass Index) 41.1 kg/m2 Last Menstrual Period 5742560 2 Parity 1 Results Test Acquired Date Facility Test Result H/L Range Note Laboratory test 11/17/2019 [facility] Genital For SEE RESULT 1 [place] [address] GRP B Strep BELOW [phone] Only Laboratory test 09/15/2019 [facility] Glucose 1 HR 116 mg/dL Normal 70-160 [address] [place] [address] Post Prandial [phone] CBC With No 09/15/2019 [facility] White Blood 10.6 Normal 3.5- 10.8 [place] [address] Count 10^3/uL [phone] Red Blood Count 3.81 10^6/uL Normal 3.70-4.87 [...] Normal 7.4-10.4 Tot Prot 24HR Urine 07/30/2019 [facility] Urine Collection 24 [place] [address] Time OB [phone] Urine Total Volume OB 1800 mL Ur TP Concentration Obstetric 8 mg/dL Ur Tot Protein/24Hr Obstetric 144 mg/24Hr Normal 0-165 Comp Metabolic 07/06/2019 [facility] Sodium 137 mmol/L Normal 135-145 [place] [address] [phone] Potassium 4.0 mmol/L Normal 3.5-5.0 Chloride 106 [...] 128.1 >60 Egfr 155.0 >60 3 Laboratory test 07/06/2019 [facility] Uric Acid 4.5 mg/dL Normal 2.3-6.6 4 [place] [address] [phone] CBC With No Diff 07/06/2019 [facility] White 11.4 High 3.5- 10.8 [place] [address] Blood 10^3/uL [phone] Count Red Blood Count 4.23 10^6/uL Normal 3.70-4.87 Hemoglobin 12.3 g/dL Normal 12.0-16.0 Hematocrit 37 % Normal 35-47 Mean Corpuscular Volume 88 fL Normal 80-97 Mean Corpuscular Hemoglobin 29 pg Normal 27-31 Mean Corpuscular HGB Conc 33 g/dL Normal 31-36 Red Cell Distribution Width 14 % Normal 10-15 Platelet Count 295 10^3/uL Normal 150-450 Mean Platelet Volume 9.2 fL Normal 7.4-10.4 Laboratory 06/17/2019 [facility] Glucose 1 HR 88 mg/dL Normal 70-160 5 [place] [address] Post Prandial [phone] Urine Drug 06/09/2019 [facility] Urine Negative 6 Comp 20 [place] [address] Amphetamine ng/mL [phone] Urine Barbiturates Negative ng/mL 7 Urine Benzodiazepines Negative ng/mL 8 Urine Cocaine Negative ng/mL 9 Urine Phencyclidine Negative ng/mL Cutoff: 25 Urine Tetrahydrocannabinol Negative ng/mL Cutoff: 50 10 Creatinine, Urine 165.8 mg/dL Specific [place] 1.016 pH 6.1 Oxidants Negative 11 Adulterants Comment Normal Codeine, Ur Not Detected ng/mL Cutoff: 25 12 Eblszgb-4-zapi-glucuronide, Ur Not Detected ng/mL 13 Morphine, Ur Not Detected ng/mL Cutoff: 25 14 Lpyjkapd-9-vxjz-glucuronide, U Not Detected ng/mL 15 6-monoacetylmorphine, Ur Not Detected ng/mL Cutoff: 25 16 Hydrocodone, Ur Not Detected ng/mL Cutoff: 25 17 Norhydrocodone, Ur Not Detected ng/mL Cutoff: 25 18 Dihydrocodeine, Ur Not Detected ng/mL Cutoff: 25 19 Hydromorphone, Ur Not Detected ng/mL Cutoff: 25 20 Wkvtfnoqsyhse2cepxtvbgzpvrjeu Not Detected ng/mL 21 Oxycodone, Ur Not Detected ng/mL Cutoff: 25 22 Noroxycodone, Ur Not Detected ng/mL Cutoff: 25 23 Oxymorphone, Ur Not Detected ng/mL Cutoff: 25 24 Htrzokpviiy-1-xeph-glucuronide Not Detected ng/mL 25 Noroxymorphone, Ur Not Detected ng/mL Cutoff: 25 26 Fentanyl, Ur Not Detected ng/mL Cutoff: 2 27 Norfentanyl, Ur Not Detected ng/mL Cutoff: 2 28 Meperidine, Ur Not Detected ng/mL Cutoff: 25 29 Normeperidine, Ur Not Detected ng/mL Cutoff: 25 30 Naloxone, Ur Not Detected ng/mL Cutoff: 25 31 Vnlnziza-8-geyz-glucuronide, U Not Detected ng/mL 32 Methadone, Ur [...] Ur Not Detected ng/mL Cutoff: 50 40 Nwiubochkv-oeli-efdulxlqkud, U Not Detected ng/mL 41 Buprenorphine, Ur Not Detected ng/mL Cutoff: 5 42 Norbuprenorphine, Ur Not Detected ng/mL Cutoff: 5 43 Norbuprenorphine glucuronide Not Detected ng/mL Cutoff: 20 44 Opioid Interpretation See Comment 45 GC/Chlamydia Dna 06/09/2019 [facility] Chlamydia [place] [address] trachomatis Carol [phone] Neisseria gonorrhoeae (GC) Carol Negative Negative 1 SEE RESULT BELOW Name: AZEEM FLORENCE : [address]: Vik Martinez DO Acct: [id number] Unit: [id number] AGE: 34 Location: [facility] Re11/17/19 SEX: F Status: REG REF SPEC: [id number] KATHRINE: 11/17/19-[address]: Vik Martinez DO REQ: [id number] RECD: 11/17/19114 STATUS: COMP _ SOURCE: CER/VAG/RE SPDESC: ORDERED: Grp B Strp Scrn COMMENTS: [id number] QUERIES: Is Patient Penicillin Allergic? N Is patient penicillin allergic and/or sensitivities needed? N Provider Requisition # [id number] Procedure Result Reported Site Group B Strep Culture Screen Final 11/19/19- 0900 ML Group B Strep Screen Negative * ML - Main Lab . END OF REPORT DEPARTMENT OF PATHOLOGY, [address] [place] [address] Geoffrey Lopez M.D. Director [facility] # [id number] 2 [id number] Because ethnic data is not always [...] 5 Kidney failure <15 (or dialysis) 4 [id number] 5 [id number] 6 REFERENCE VALUE Cutoff: 500 7 REFERENCE VALUE Cutoff: 200 8 REFERENCE VALUE Cutoff: 100 9 REFERENCE VALUE Cutoff: 150 10 ADDITIONAL INFORMATION This report is intended for use in clinical monitoring or management of patients. It is not intended for use in employment-related testing. Test Performed by: [facility] [address] [place] [address] Refrigerated Company Driver: Jaskaran Smith M.D. Ph.D.; CLIA# [id number] 11 REFERENCE VALUE Cutoff: 200 mg/L 12 Tylenol 3 13 Metabolite of codeine REFERENCE VALUE Cutoff: 100 14 Syeda Nascimento, MS Contin; Also a minor metabolite (10%) of codeine and can be seen in low concentrations (<2,000 ng/mL) with poppy seed ingestion. 15 Metabolite of morphine REFERENCE VALUE Cutoff: 100 16 Metabolite of heroin 17 Lortab, [place], Vicodin; Also a very minor metabolite of [...] developed and its performance characteristics determined by [facility] in a manner consistent with CLIA requirements. This test has not been cleared or approved by the U.S. Food and Drug Administration. Procedures Date Code Description Status 11/12/2019 03046 Biophysical Profile Without Non Stress Test Completed 11/12/2019 41726 Echography Uterus Follow-Up Or Repeat Completed 11/03/2019 17600 Non-Stress Test Completed 10/27/2019 15060 Non-Stress Test Completed 09/29/2019 30629 Echography Uterus Follow-Up Or Repeat Completed 09/01/2019 87290 Echography Uterus Follow-Up Or Repeat Completed 08/03/2019 27489 Echography Uterus Complete Completed Medical Devices Description [...] 06/09/2019 O99.210 Obesity complicating , unspecified Vik Juan , DO trimester Plan of Treatment Future Appointment(s):12/09/2019 7:45 am - Lissette Fraser MD at [place] [id number] 11:00 am - Quynh Zhong MD at [facility]12/04/2019 2:40 pm - Td Clark M.D. at [facility]12/16/2019 10:45 am - Jennifer Barahona CNM at [facility]12/09/2019 7:45 am - Quynh Zhong MD at [facility] [place] O R Functional Status Description No Information Available Mental Status Description No Information Available Referrals Description No Information Available
--- OUTSIDE RECORDS SUMMARY | 2019-11-23 05:45 | XMS REPORT | Continuity of Care Document ---
:1985 External Reference #:[id number] Author Name Nurses (transmitted by agent of provider Katy Johnson) Care Team Providers Name Role Phone Mina Winters M.D. 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 Team Information Staff Development Coordinator [phone] Medicine Problems Description No Information Available Social [...] CPT Code Status Date Vaccine Lot # [id number] Given 09/15/2019 Tetnus, Diptheria Toxoids And Acellular Pertussis, [id number] PT > 7Yrs Old [address] Given 01/04/2016 Tetnus, Diptheria Toxoids And Acellular Pertussis, [id number] PT > 7Yrs Old Vital Signs Date Vital Result Comment 05/13/2019 2:44pm BP Systolic 124 mmHg BP Diastolic 82 mmHg Height 63.5 inches 5'3.50" Weight 245.00 lb BMI (Body Mass Index) 42.7 kg/m2 Last Menstrual Period 1781951 3 Parity 1 06/30/2018 10:08am BP Systolic 128 mmHg BP Diastolic 76 mmHg Height 63.5 inches 5'3.50" Weight 236.00 lb BMI (Body Mass Index) 41.1 kg/m2 Last Menstrual Period 5866710 2 Parity 1 Results Test Acquired Date Facility Test Result H/L Range Note Comp Metabolic 11/20/2019 [facility] Sodium 137 mmol/L Normal 135-145 [place] [address] [phone] Potassium 4.6 mmol/L Normal 3.5-5.0 Chloride 106 mmol/L Normal 101-111 Co2 Carbon Dioxide 25 mmol/L Normal 22-32 Anion Gap 6 mmol/L Normal 2-11 Calcium 9.3 mg/dL Normal 8.6-10.3 Albumin 3.5 g/dL Normal 3.2-5.2 Total Bilirubin 0.50 mg/dL Normal 0.2-1.0 Glucose 82 mg/dL Normal 70-100 Blood Urea Nitrogen 9 mg/dL Normal 6-24 Creatinine 0.51 mg/dL Normal 0.51-0.95 BUN/Creatinine Ratio 17.6 Normal 8-20 Total Protein 6.4 g/dL Normal 6.4-8.9 Globulin 2.9 g/dL Normal 2-4 Albumin/Globulin Ratio 1.2 Normal 1-3 Alkaline Phosphatase 95 U/L Normal 34-104 Alt 11 U/L Normal 7-52 Ast 12 U/L Low 13-39 Egfr Non- 138.9 >60 Egfr 168.0 >60 1 CBC Auto 11/20/2019 [facility] White Blood 9.5 10^3/uL Normal 3.5-10.8 [place] [address] Count [phone] Red Blood Count 4.30 10^6/uL Normal 3.70-4.87 Hemoglobin 12.0 g/dL Normal 12.0-16.0 Hematocrit 35 % Normal 35-47 Mean Corpuscular Volume 82 fL Normal 80-97 Mean Corpuscular Hemoglobin 28 pg Normal 27-31 Mean Corpuscular HGB Conc 34 g/dL Normal 31-36 Red Cell Distribution Width 14 % Normal 10-15 Platelet Count 305 10^3/uL Normal 150-450 Mean Platelet Volume 8.9 fL Normal 7.4-10.4 Abs Neutrophils 6.7 10^3/uL Normal 1.5-7.7 Abs Lymphocytes 2.1 10^3/uL Normal 1.0-4.8 Abs Monocytes 0.7 10^3/uL Normal 0-0.8 Abs Eosinophils 0.1 10^3/uL Normal 0-0.6 Abs Basophils 0.0 10^3/uL Normal 0-0.2 Abs Nucleated RBC 0.0 10^3/uL Granulocyte % 70.1 % Lymphocyte % 21.5 % Monocyte % 7.3 % Eosinophil % 0.9 % Basophil % 0.2 % Nucleated Red Blood Cells % 0.0 Laboratory test 11/20/2019 [facility] Uric Acid 5.2 mg/dL Normal 2.3-6.6 2 [place] [address] [phone] Laboratory test 11/17/2019 [facility] Genital For SEE RESULT 3 [place] [address] GRP B Strep BELOW [phone] Only Laboratory test 09/15/2019 [facility] Glucose 1 HR 116 mg/dL Normal 70-160 4 [place] [address] Post [phone] Prandial CBC With No 09/15/2019 [facility] White Blood 10.6 Normal 3.5- 10.8 [place] [address] Count 10^3/uL [phone] Red Blood Count 3.81 10^6/uL Normal 3.70-4.87 [...] Normal 7.4-10.4 Tot Prot 24HR Urine 07/30/2019 [facility] Urine Collection 24 [place] [address] Time OB [phone] Urine Total Volume OB 1800 mL Ur TP Concentration Obstetric 8 mg/dL Ur Tot Protein/24Hr Obstetric 144 mg/24Hr Normal 0-165 CBC With No 07/06/2019 [facility] White Blood 11.4 10^3/uL High 3.5-10.8 [place] [address] Count [phone] Red Blood Count 4.23 10^6/uL Normal 3.70-4.87 Hemoglobin 12.3 g/dL Normal 12.0-16.0 Hematocrit 37 % Normal 35-47 Mean Corpuscular Volume 88 fL Normal 80-97 Mean Corpuscular Hemoglobin 29 pg Normal 27-31 Mean Corpuscular HGB Conc 33 g/dL Normal 31-36 Red Cell Distribution Width 14 % Normal 10-15 Platelet Count 295 10^3/uL Normal 150-450 Mean Platelet Volume 9.2 fL Normal 7.4-10.4 Laboratory test 07/06/2019 [facility] Uric Acid 4.5 mg/dL Normal 2.3-6.6 5 [place] [address] [phone] Comp Metabolic 07/06/2019 [facility] Sodium 137 mmol/L Normal 135-145 Panel [place], [place] [address] [phone] Potassium 4.0 mmol/L Normal 3.5-5.0 Chloride 106 [...] Egfr Non- 128.1 >60 Egfr 155.0 >60 6 Laboratory 06/17/2019 [facility] Glucose 1 HR 88 mg/dL Normal 70-160 7 [place] [address] Post Prandial [phone] Urine Drug 06/09/2019 [facility] Urine Negative 8 Comp 20 [place] [address] Amphetamine ng/mL [phone] Urine Barbiturates Negative ng/mL 9 Urine Benzodiazepines Negative ng/mL 10 Urine Cocaine Negative ng/mL 11 Urine Phencyclidine Negative ng/mL Cutoff: 25 Urine Tetrahydrocannabinol Negative ng/mL Cutoff: 50 12 Creatinine, Urine 165.8 mg/dL Specific [place] 1.016 pH 6.1 Oxidants Negative 13 Adulterants Comment Normal Codeine, Ur Not Detected ng/mL Cutoff: 25 14 Ojcdfdr-1-yzrx-glucuronide, Ur Not Detected ng/mL 15 Morphine, Ur Not Detected ng/mL Cutoff: 25 16 Fkiytxgn-0-xuut-glucuronide, U Not Detected ng/mL 17 6-monoacetylmorphine, Ur Not Detected ng/mL Cutoff: 25 18 Hydrocodone, Ur Not Detected ng/mL Cutoff: 25 19 Norhydrocodone, Ur Not Detected ng/mL Cutoff: 25 20 Dihydrocodeine, Ur Not Detected ng/mL Cutoff: 25 21 Hydromorphone, Ur Not Detected ng/mL Cutoff: 25 22 Pintvblflelza1mzuzozsjovzvvau Not Detected ng/mL 23 Oxycodone, Ur Not Detected ng/mL Cutoff: 25 24 Noroxycodone, Ur Not Detected ng/mL Cutoff: 25 25 Oxymorphone, Ur Not Detected ng/mL Cutoff: 25 26 Trgzxhbwrwk-1-aquf-glucuronide Not Detected ng/mL 27 Noroxymorphone, Ur Not Detected ng/mL Cutoff: 25 28 Fentanyl, Ur Not Detected ng/mL Cutoff: 2 29 Norfentanyl, Ur Not Detected ng/mL Cutoff: 2 30 Meperidine, Ur Not Detected ng/mL Cutoff: 25 31 Normeperidine, Ur Not Detected ng/mL Cutoff: 25 32 Naloxone, Ur Not Detected ng/mL Cutoff: 25 33 Mfyrrvoc-0-rkzr-glucuronide, U Not Detected ng/mL 34 Methadone, Ur Not Detected ng/mL Cutoff: 25 35 Eddp, Ur Not Detected ng/mL Cutoff: 25 36 Propoxyphene, Ur Not Detected ng/mL Cutoff: 25 37 Norpropoxyphene, Ur Not Detected ng/mL Cutoff: 25 38 Tramadol, Ur Not Detected ng/mL Cutoff: 25 39 O-desmethyltramadol, Ur Not Detected ng/mL Cutoff: 25 40 Tapentadol, Ur Not Detected ng/mL Cutoff: 25 41 N-desmethyltapentadol, Ur Not Detected ng/mL Cutoff: 50 42 Oycntvrert-ccyn-knrfsjapkfy, U Not Detected ng/mL 43 Buprenorphine, Ur Not Detected ng/mL Cutoff: 5 44 Norbuprenorphine, Ur Not Detected ng/mL Cutoff: 5 45 Norbuprenorphine glucuronide Not Detected ng/mL Cutoff: 20 46 Opioid Interpretation See Comment 47 GC/Chlamydia Dna 06/09/2019 [facility] [place] [address] trachomatis Carol [phone] Neisseria gonorrhoeae (GC) Carol Negative Negative 1 Because ethnic data is not always readily [...] 15-29 5 Kidney failure <15 (or dialysis) 2 [id number] 3 SEE RESULT BELOW Name: AZEEM FLORENCE : [address]: Vik Martinez DO Acct: [id number] Unit: [id number] AGE: 34 Location: [facility] Re11/17/19 SEX: F Status: REG REF SPEC: [id number] KATHRINE: 11/17/19-[address]: Vik Martinez DO REQ: [id number] RECD: 11/17/19 STATUS: COMP _ SOURCE: CER/VAG/RE SPDESC: ORDERED: Grp B Strp Scrn COMMENTS: [id number] QUERIES: Is Patient Penicillin Allergic? N Is patient penicillin allergic and/or sensitivities needed? N Provider Requisition # [id number] Procedure Result Reported Site Group B Strep Culture Screen Final 11/19/19- 0900 ML Group B Strep Screen Negative * ML - Main Lab . END OF REPORT DEPARTMENT OF PATHOLOGY, [address] [place] [address] Geoffrey Lopez M.D. Director [facility] # [id number] 4 [id number] 6 Because ethnic data is not always readily [...] 15-29 5 Kidney failure <15 (or dialysis) 7 [id number] REFERENCE VALUE Cutoff: 500 9 REFERENCE VALUE Cutoff: 200 10 REFERENCE VALUE Cutoff: 100 11 REFERENCE VALUE Cutoff: 150 12 ADDITIONAL INFORMATION This report is intended for use in clinical monitoring or management of patients. It is not intended for use in employment-related testing. Test Performed by: [facility] [address] [place] [address] Shipping Packer: Jaskaran Smith M.D. Ph.D.; IA# [id number] 13 REFERENCE VALUE Cutoff: 200 mg/L 14 Tylenol 3 15 Metabolite of codeine REFERENCE VALUE Cutoff: 100 16 Syeda Nascimento, MS Contin; Also a minor metabolite (10%) of codeine and can be seen in low concentrations (<2,000 ng/mL) with poppy seed ingestion. 17 Metabolite of morphine REFERENCE VALUE Cutoff: 100 18 Metabolite of heroin 19 Lortab, [place], Vicodin; Also a very minor metabolite of codeine and impurity (<1%) of oxycodone. 20 Metabolite of hydrocodone 21 Metabolite of hydrocodone 22 Dilaudid, Exalgo; Also a metabolite of hydrocodone and a minor (<5%) metabolite of morphine. 23 Metabolite of hydromorphone REFERENCE VALUE Cutoff: 100 24 Endocet, Percocet, Oxycontin 25 Metabolite of oxycodone 26 Numorphan, Opana; Also a metabolite of oxycodone. 27 Metabolite of oxymorphone REFERENCE VALUE Cutoff: 100 28 Metabolite of oxymorphone 29 Actiq, Duragesic, Fentora 30 Metabolite of fentanyl 31 Demerol 32 Metabolite of meperidine 33 Narcan 34 Metabolite of naloxone REFERENCE VALUE Cutoff: 100 35 Dolophine 36 Metabolite of methadone 37 Darvon, Darvocet 38 Metabolite of propoxyphene 39 Tradol, Ultram, Ultracet 40 Metabolite of tramadol 41 Nucynta 42 Metabolite of tapentadol 43 Metabolite of tapentadol REFERENCE VALUE Cutoff: 100 44 Buprenex, Suboxone 45 Metabolite of buprenorphine 46 Metabolite of buprenorphine 47 No opioids were detected. The absence of expected drug(s) and/or drug metabolite(s) may indicate non-compliance, altered pharmacokinetics, inappropriate timing of specimen collection relative to drug administration, diluted/adulterated urine, or limitations of testing. ADDITIONAL INFORMATION This test was developed and its performance characteristics determined by [facility] in a manner consistent with CLIA requirements. This test has not been cleared or approved by the U.S. Food and Drug Administration. Procedures Date Code Description Status 11/20/2019 54654 Non-Stress Test Completed 11/17/2019 00376 Non-Stress Test Completed 11/12/2019 39632 Biophysical Profile Without Non Stress Test Completed 11/12/2019 30457 Echography Uterus Follow-Up Or Repeat Completed 11/03/2019 17215 Non-Stress Test Completed 10/27/2019 71964 Non-Stress Test Completed 09/29/2019 02589 Echography Uterus Follow-Up Or Repeat Completed 09/01/2019 64093 Echography Uterus Follow-Up Or Repeat Completed 08/03/2019 59106 Echography Uterus Complete Completed Medical Devices Description No Information Available Encounters Description No Information Available Assessments Date Code Description Provider 11/17/2019 O10.013 Pre-existing essential hypertension Vik Martinez JR, DO complicating , third trimester 11/17/2019 O10.013 Pre-existing essential hypertension Nurses complicating , third trimester 11/17/2019 O34.211 Maternal care for low transverse [...] 7:45 am - Lissette Fraser MD at [place] [id number] 11:00 am - Quynh Zhong MD at [place] [id number] 2:40 pm - Td Clark M.D. at [facility]12/16/2019 10:45 am - Jennifer Barahona CNM at [facility]12/09/2019 7:45 am - [place] [facility] Functional Status Description No Information Available Mental Status Description No Information Available Referrals Description No Information Available
--- OUTSIDE RECORDS SUMMARY | 2019-11-23 05:45 | XMS REPORT | Continuity of Care Document ---
:1985 External Reference #:[id number] Author Name Vik Martinez JR, DO (transmitted by agent of provider Katy Johnson) Address [address] [facility] [place] [address] Care Team Providers Name Role Phone Mina Winters M.D. 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 Team Information Long Winder Tender [phone] Medicine Problems Description No Information Available Social [...] CPT Code Status Date Vaccine Lot # [id number] Given 09/15/2019 Tetnus, Diptheria Toxoids And Acellular Pertussis, DC924 PT > 7Yrs Old [address] Given 01/04/2016 Tetnus, Diptheria Toxoids And Acellular Pertussis, [id number] PT > 7Yrs Old Vital Signs Date Vital Result Comment 05/13/2019 2:44pm BP Systolic 124 mmHg BP Diastolic 82 mmHg Height 63.5 inches 5'3.50" Weight 245.00 lb BMI (Body Mass Index) 42.7 kg/m2 Last Menstrual Period 6175743 3 Parity 1 06/30/2018 10:08am BP Systolic 128 mmHg BP Diastolic 76 mmHg Height 63.5 inches 5'3.50" Weight 236.00 lb BMI (Body Mass Index) 41.1 kg/m2 Last Menstrual Period 1082259 2 Parity 1 Results Test Acquired Date Facility Test Result H/L Range Note Comp Metabolic 11/20/2019 [facility] Sodium 137 mmol/L Normal 135-145 [place] [address] [phone] Potassium 4.6 mmol/L Normal 3.5-5.0 Chloride 106 [...] Egfr 168.0 >60 1 CBC Auto 11/20/2019 [facility] White Blood 9.5 10^3/uL Normal 3.5-10.8 [place] [address] Count [phone] Red Blood Count 4.30 10^6/uL Normal 3.70-4.87 [...] Blood Cells % 0.0 Laboratory test 11/20/2019 [facility] Uric Acid 5.2 mg/dL Normal 2.3-6.6 2 [place] [address] [phone] Laboratory test 11/17/2019 [facility] Genital For SEE RESULT 3 [place] [address] GRP B Strep BELOW [phone] Only Laboratory test 09/15/2019 [facility] Glucose 1 HR 116 mg/dL Normal 70-160 4 [place] [address] Post [phone] Prandial CBC With No 09/15/2019 [facility] White Blood 10.6 Normal 3.5- 10.8 [place] [address] Count 10^3/uL [phone] Red Blood Count 3.81 10^6/uL Normal 3.70-4.87 [...] Normal 7.4-10.4 Tot Prot 24HR Urine 07/30/2019 [facility] Urine Collection 24 [place] [address] Time OB [phone] Urine Total Volume OB 1800 mL Ur TP Concentration Obstetric 8 mg/dL Ur Tot Protein/24Hr Obstetric 144 mg/24Hr Normal 0-165 CBC With No 07/06/2019 [facility] White Blood 11.4 10^3/uL High 3.5-10.8 [place] [address] Count [phone] Red Blood Count 4.23 10^6/uL Normal 3.70-4.87 Hemoglobin 12.3 g/dL Normal 12.0-16.0 Hematocrit 37 % Normal 35-47 Mean Corpuscular Volume 88 fL Normal 80-97 Mean Corpuscular Hemoglobin 29 pg Normal 27-31 Mean Corpuscular HGB Conc 33 g/dL Normal 31-36 Red Cell Distribution Width 14 % Normal 10-15 Platelet Count 295 10^3/uL Normal 150-450 Mean Platelet Volume 9.2 fL Normal 7.4-10.4 Laboratory test 07/06/2019 [facility] Uric Acid 4.5 mg/dL Normal 2.3-6.6 5 [place] [address] [phone] Comp Metabolic 07/06/2019 [facility] Sodium 137 mmol/L Normal 135-145 [place] [address] [phone] Potassium 4.0 mmol/L Normal 3.5-5.0 Chloride 106 [...] >60 Egfr 155.0 >60 6 Laboratory 06/17/2019 [facility] Glucose 1 HR 88 mg/dL Normal 70-160 7 [place] [address] Post Prandial [phone] Urine Drug 06/09/2019 [facility] Urine Negative 8 Comp 20 [place] [address] Amphetamine ng/mL [phone] Urine Barbiturates Negative ng/mL 9 Urine Benzodiazepines Negative ng/mL 10 Urine Cocaine Negative ng/mL 11 Urine Phencyclidine Negative ng/mL Cutoff: 25 Urine Tetrahydrocannabinol Negative ng/mL Cutoff: 50 12 Creatinine, Urine 165.8 mg/dL Specific [place] 1.016 pH 6.1 Oxidants Negative 13 Adulterants Comment Normal Codeine, Ur Not Detected ng/mL Cutoff: 25 14 Oybxwcb-6-thpa-glucuronide, Ur Not Detected ng/mL 15 Morphine, Ur Not Detected ng/mL Cutoff: 25 16 Lpstmhpm-6-jdke-glucuronide, U Not Detected ng/mL 17 6-monoacetylmorphine, Ur Not Detected ng/mL Cutoff: 25 18 Hydrocodone, Ur Not Detected ng/mL Cutoff: 25 19 Norhydrocodone, Ur Not Detected ng/mL Cutoff: 25 20 Dihydrocodeine, Ur Not Detected ng/mL Cutoff: 25 21 Hydromorphone, Ur Not Detected ng/mL Cutoff: 25 22 Kzczahjrpspyg0qrqdjpgioaylnfu Not Detected ng/mL 23 Oxycodone, Ur Not Detected ng/mL Cutoff: 25 24 Noroxycodone, Ur Not Detected ng/mL Cutoff: 25 25 Oxymorphone, Ur Not Detected ng/mL Cutoff: 25 26 Rhlwfgtgwte-3-vfdo-glucuronide Not Detected ng/mL 27 Noroxymorphone, Ur Not Detected ng/mL Cutoff: 25 28 Fentanyl, Ur Not Detected ng/mL Cutoff: 2 29 Norfentanyl, Ur Not Detected ng/mL Cutoff: 2 30 Meperidine, Ur Not Detected ng/mL Cutoff: 25 31 Normeperidine, Ur Not Detected ng/mL Cutoff: 25 32 Naloxone, Ur Not Detected ng/mL Cutoff: 25 33 Znejbsnb-7-rgvg-glucuronide, U Not Detected ng/mL 34 Methadone, Ur [...] Ur Not Detected ng/mL Cutoff: 50 42 Anmwjabbbi-qwng-pmqiidrucag, U Not Detected ng/mL 43 Buprenorphine, Ur Not Detected ng/mL Cutoff: 5 44 Norbuprenorphine, Ur Not Detected ng/mL Cutoff: 5 45 Norbuprenorphine glucuronide Not Detected ng/mL Cutoff: 20 46 Opioid Interpretation See Comment 47 GC/Chlamydia Dna 06/09/2019 [facility] Chlamydia [place] [address] trachomatis Carol [phone] Neisseria gonorrhoeae (GC) Carol Negative Negative 1 [...] 5 Kidney failure <15 (or dialysis) 2 [id number] 3 SEE RESULT BELOW Name: AZEEM FLORENCE : [address]: Vik Martinez DO Acct: [id number] Unit: [id number] AGE: 34 Location: [facility] Re11/17/19 SEX: F Status: REG REF SPEC: [id number] KATHRINE: 11/17/[address]: Vik Martinez DO REQ: [id number] RECD: 11/17/19 STATUS: COMP _ SOURCE: CER/VAG/RE SPDESC: ORDERED: Radha Mims COMMENTS: [id number] QUERIES: Is Patient Penicillin Allergic? N Is patient penicillin allergic and/or sensitivities needed? N Provider Requisition # [id number] Procedure Result Reported Site Group B Strep Culture Screen Final 11/19/19- 0900 ML Group B Strep Screen Negative * ML - Main Lab . END OF REPORT DEPARTMENT OF PATHOLOGY, [address] [place] [address] Geoffrey Lopez M.D. Director [facility] # [id number] Because ethnic data is not always [...] 5 Kidney failure <15 (or dialysis) 7 [id number] REFERENCE VALUE Cutoff: 500 9 REFERENCE VALUE Cutoff: 200 10 REFERENCE VALUE Cutoff: 100 11 REFERENCE VALUE Cutoff: 150 12 ADDITIONAL INFORMATION This report is intended for use in clinical monitoring or management of patients. It is not intended for use in employment-related testing. Test Performed by: [facility] [address] [place] [address] Repair Clerk: Jaskaran Smith M.D. Ph.D.; [facility]# [id number] 13 REFERENCE VALUE Cutoff: 200 mg/L 14 Tylenol 3 15 Metabolite of codeine REFERENCE VALUE Cutoff: 100 16 Syeda Nascimento, MS Contin; Also a minor metabolite (10%) of codeine and can be seen in low concentrations (<2,000 ng/mL) with poppy seed ingestion. 17 Metabolite of morphine REFERENCE VALUE Cutoff: 100 18 Metabolite of heroin 19 Lortab, [place], Vicodin; Also a very minor metabolite of [...] developed and its performance characteristics determined by [facility] in a manner consistent with CLIA requirements. This test has not been cleared or approved by the U.S. Food and Drug Administration. Procedures Date Code Description Status 11/20/2019 46215 Non-Stress Test Completed 11/12/2019 99732 Biophysical Profile Without Non Stress Test Completed 11/12/2019 79697 Echography Uterus Follow-Up Or Repeat Completed 11/03/2019 90369 Non-Stress Test Completed 10/27/2019 84707 Non-Stress Test Completed 09/29/2019 42372 Echography Uterus Follow-Up Or Repeat Completed 09/01/2019 14306 Echography Uterus Follow-Up Or Repeat Completed 08/03/2019 32001 Echography Uterus Complete Completed Medical Devices Description No Information Available Encounters Description No Information Available Assessments Date Code Description Provider 11/17/2019 O34.211 Maternal care for low transverse scar from Vik Martinez JR DO previous delivery 11/12/2019 O10.013 Pre-existing essential [...] for low transverse scar from Vik Martinez JR DO previous delivery 09/29/2019 O99.212 Obesity complicating [...] 7:45 am - Lissette Fraser MD at [place] [id number] 11:00 am - [facility]h Zhong MD at [facility]12/04/2019 2:40 pm - Td Clark M.D. at [facility]12/16/2019 10:45 am - Jennifer Barahona CNM at [facility]12/09/2019 7:45 am - Quynh Zhong MD at [facility] O R Functional Status Description No Information Available Mental Status Description No Information Available Referrals Description No Information Available
--- OUTSIDE RECORDS SUMMARY | 2019-11-23 05:45 | XMS REPORT | Continuity of Care Document ---
:1985 External Reference #:[id number] Author Name Lissette Fraser MD (transmitted by agent of provider Katy Johnson) Address [address] [place] [address] Care Team Providers Name Role Phone Mina Winters M.D. 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 Team Information Hospice Community Liaison [phone] Medicine Problems Description No Information Available Social [...] CPT Code Status Date Vaccine Lot # [id number] Given 09/15/2019 Tetnus, Diptheria Toxoids And Acellular Pertussis, [id number] PT > 7Yrs Old 10939 Given 01/04/2016 Tetnus, Diptheria Toxoids And Acellular Pertussis, [id number] PT > 7Yrs Old Vital Signs Date Vital Result Comment 05/13/2019 2:44pm BP Systolic 124 mmHg BP Diastolic 82 mmHg Height 63.5 inches 5'3.50" Weight 245.00 lb BMI (Body Mass Index) 42.7 kg/m2 Last Menstrual Period 3209539 3 Parity 1 06/30/2018 10:08am BP Systolic 128 mmHg BP Diastolic 76 mmHg Height 63.5 inches 5'3.50" Weight 236.00 lb BMI (Body Mass Index) 41.1 kg/m2 Last Menstrual Period 3395878 2 Parity 1 Results Test Acquired Date Facility Test Result H/L Range Note Comp Metabolic 11/20/2019 [facility] Sodium 137 mmol/L Normal 135-145 [place] [address] [phone] Potassium 4.6 mmol/L Normal 3.5-5.0 Chloride 106 [...] Egfr 168.0 >60 1 CBC Auto 11/20/2019 [facility] White Blood 9.5 10^3/uL Normal 3.5-10.8 [place] [address] Count [phone] Red Blood Count 4.30 10^6/uL Normal 3.70-4.87 [...] Blood Cells % 0.0 Laboratory test 11/20/2019 [facility] Uric Acid 5.2 mg/dL Normal 2.3-6.6 2 [place] [address] [phone] Laboratory test 11/17/2019 [facility] Genital For SEE RESULT 3 [place] [address] GRP B Strep BELOW [phone] Only Laboratory test 09/15/2019 [facility] Glucose 1 HR 116 mg/dL Normal 70-160 4 [place] [address] Post [phone] Prandial CBC With No 09/15/2019 [facility] White Blood 10.6 Normal 3.5- 10.8 [place] [address] Count 10^3/uL [phone] Red Blood Count 3.81 10^6/uL Normal 3.70-4.87 [...] Normal 7.4-10.4 Tot Prot 24HR Urine 07/30/2019 [facility] Urine Collection 24 [place] [address] Time OB [phone] Urine Total Volume OB 1800 mL Ur TP Concentration Obstetric 8 mg/dL Ur Tot Protein/24Hr Obstetric 144 mg/24Hr Normal 0-165 CBC With No 07/06/2019 [facility] White Blood 11.4 10^3/uL High 3.5-10.8 [place] [address] Count [phone] Red Blood Count 4.23 10^6/uL Normal 3.70-4.87 Hemoglobin 12.3 g/dL Normal 12.0-16.0 Hematocrit 37 % Normal 35-47 Mean Corpuscular Volume 88 fL Normal 80-97 Mean Corpuscular Hemoglobin 29 pg Normal 27-31 Mean Corpuscular HGB Conc 33 g/dL Normal 31-36 Red Cell Distribution Width 14 % Normal 10-15 Platelet Count 295 10^3/uL Normal 150-450 Mean Platelet Volume 9.2 fL Normal 7.4-10.4 Laboratory test 07/06/2019 [facility] Uric Acid 4.5 mg/dL Normal 2.3-6.6 5 [place] [address] [phone] Comp Metabolic 07/06/2019 [facility] Sodium 137 mmol/L Normal 135-145 [place] [address] [phone] Potassium 4.0 mmol/L Normal 3.5-5.0 Chloride 106 [...] >60 Egfr 155.0 >60 6 Laboratory 06/17/2019 [facility] Glucose 1 HR 88 mg/dL Normal 70-160 7 [place] [address] Post Prandial [phone] Urine Drug 06/09/2019 [facility] Urine Negative 8 Comp 20 [place] [address] Amphetamine ng/mL [phone] Urine Barbiturates Negative ng/mL 9 Urine Benzodiazepines Negative ng/mL 10 Urine Cocaine Negative ng/mL 11 Urine Phencyclidine Negative ng/mL Cutoff: 25 Urine Tetrahydrocannabinol Negative ng/mL Cutoff: 50 12 Creatinine, Urine 165.8 mg/dL Specific [place] 1.016 pH 6.1 Oxidants Negative 13 Adulterants Comment Normal Codeine, Ur Not Detected ng/mL Cutoff: 25 14 Hnpkjwg-1-fcxl-glucuronide, Ur Not Detected ng/mL 15 Morphine, Ur Not Detected ng/mL Cutoff: 25 16 Utfkvtth-5-yhym-glucuronide, U Not Detected ng/mL 17 6-monoacetylmorphine, Ur Not Detected ng/mL Cutoff: 25 18 Hydrocodone, Ur Not Detected ng/mL Cutoff: 25 19 Norhydrocodone, Ur Not Detected ng/mL Cutoff: 25 20 Dihydrocodeine, Ur Not Detected ng/mL Cutoff: 25 21 Hydromorphone, Ur Not Detected ng/mL Cutoff: 25 22 Opinvjjkfpgrh1peazmlyldwmflul Not Detected ng/mL 23 Oxycodone, Ur Not Detected ng/mL Cutoff: 25 24 Noroxycodone, Ur Not Detected ng/mL Cutoff: 25 25 Oxymorphone, Ur Not Detected ng/mL Cutoff: 25 26 Vlvfktoxpto-6-kbfy-glucuronide Not Detected ng/mL 27 Noroxymorphone, Ur Not Detected ng/mL Cutoff: 25 28 Fentanyl, Ur Not Detected ng/mL Cutoff: 2 29 Norfentanyl, Ur Not Detected ng/mL Cutoff: 2 30 Meperidine, Ur Not Detected ng/mL Cutoff: 25 31 Normeperidine, Ur Not Detected ng/mL Cutoff: 25 32 Naloxone, Ur Not Detected ng/mL Cutoff: 25 33 Fnhlhknh-8-xfht-glucuronide, U Not Detected ng/mL 34 Methadone, Ur [...] Ur Not Detected ng/mL Cutoff: 50 42 Mexmdlscmg-ybis-fdwucuoewai, U Not Detected ng/mL 43 Buprenorphine, Ur Not Detected ng/mL Cutoff: 5 44 Norbuprenorphine, Ur Not Detected ng/mL Cutoff: 5 45 Norbuprenorphine glucuronide Not Detected ng/mL Cutoff: 20 46 Opioid Interpretation See Comment 47 GC/Chlamydia Dna 06/09/2019 [facility] Chlamydia [place] [address] trachomatis Carol [phone] Neisseria gonorrhoeae (GC) Carol Negative Negative 1 [...] 5 Kidney failure <15 (or dialysis) 2 [id number] 3 SEE RESULT BELOW Name: AZEEM FLORENCE : [address]: Vik Martinez DO Acct: [id number] Unit: [id number] AGE: 34 Location: [facility] Re11/17/19 SEX: F Status: REG REF SPEC: [id number] KATHRINE: 11/17/[address]: Vik Martinez DO REQ: [id number] RECD: 11/17/19 STATUS: COMP _ SOURCE: CER/VAG/RE SPDESC: ORDERED: Radha Garcia Scrn COMMENTS: [id number] QUERIES: Is Patient Penicillin Allergic? N Is patient penicillin allergic and/or sensitivities needed? N Provider Requisition # [id number] Procedure Result Reported Site Group B Strep Culture Screen Final 11/19/19- 0900 ML Group B Strep Screen Negative * ML - Main Lab . END OF REPORT DEPARTMENT OF PATHOLOGY, [address] [place] [address] Geoffrey Lopez M.D. Director BHARTI # [id number] Because ethnic data is not always [...] 5 Kidney failure <15 (or dialysis) 7 [id number] 8 REFERENCE VALUE Cutoff: 500 9 REFERENCE VALUE Cutoff: 200 10 REFERENCE VALUE Cutoff: 100 11 REFERENCE VALUE Cutoff: 150 12 ADDITIONAL INFORMATION This report is intended for use in clinical monitoring or management of patients. It is not intended for use in employment-related testing. Test Performed by: [facility] [employer] [facility] [address] [place] [address] Heat Treater Apprentice: Jaskaran Smith M.D. Ph.D.; [facility]# [id number] 13 REFERENCE VALUE Cutoff: 200 mg/L 14 Tylenol 3 15 Metabolite of codeine REFERENCE VALUE Cutoff: 100 16 Syeda Nascimento, MS Contin; Also a minor metabolite (10%) of codeine and can be seen in low concentrations (<2,000 ng/mL) with poppy seed ingestion. 17 Metabolite of morphine REFERENCE VALUE Cutoff: 100 18 Metabolite of heroin 19 Lortab, [place], Vicodin; Also a very minor metabolite of [...] its performance characteristics determined by [facility] in a manner consistent with CLIA requirements. This test has not been cleared or approved by the U.S. Food and Drug Administration. Procedures Date Code Description Status 11/20/2019 18571 Non-Stress Test Completed 11/17/2019 44797 Non-Stress Test Completed 11/12/2019 12673 Biophysical Profile Without Non Stress Test Completed 11/12/2019 64181 Echography Uterus Follow-Up Or Repeat Completed 11/03/2019 45081 Non-Stress Test Completed 10/27/2019 13978 Non-Stress Test Completed 09/29/2019 32354 Echography Uterus Follow-Up Or Repeat Completed 09/01/2019 94574 Echography Uterus Follow-Up Or Repeat Completed 08/03/2019 16687 Echography Uterus Complete Completed Medical Devices Description [...] Encounter for supervision of other normal Td Clrak M.D. , second trimester 09/01/2019 O99.212 Obesity [...] 7:45 am - Lissette Fraser MD at [facility] O R02019 11:00 am - Quynh Zhong MD at [facility]12/04/2019 2:40 pm - Td Clark M.D. at [facility]12/16/2019 10:45 am - Jennifer Barahona CNM at [facility]12/09/2019 7:45 am - Quynh Zhong MD at [facility] O R Functional Status Description No Information Available Mental Status Description No Information Available Referrals Description No Information Available
--- OUTSIDE RECORDS SUMMARY | 2019-11-23 05:45 | XMS REPORT | Continuity of Care Document ---
:1985 External Reference #:[id number] Author Name Td Clark M.D. (transmitted by agent of provider Collette Marshall) Address [address] [place] [address] Care Team Providers Name Role Phone CourtneyMere turner FIELD REPRESENTATIVE/HEALTH EDUCATION 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 Team Information Filling Hauler [phone] Problems Description No Information Available Social History [...] CPT Code Status Date Vaccine Lot # [id number] Given 09/15/2019 Tetnus, Diptheria Toxoids And Acellular Pertussis, DC924 PT > 7Yrs Old [address] Given 01/04/2016 Tetnus, Diptheria Toxoids And Acellular Pertussis, [id number] PT > 7Yrs Old Vital Signs Date Vital Result Comment 05/13/2019 2:44pm BP Systolic 124 mmHg BP Diastolic 82 mmHg Height 63.5 inches 5'3.50" Weight 245.00 lb BMI (Body Mass Index) 42.7 kg/m2 Last Menstrual Period 3151392 3 Parity 1 06/30/2018 10:08am BP Systolic 128 mmHg BP Diastolic 76 mmHg Height 63.5 inches 5'3.50" Weight 236.00 lb BMI (Body Mass Index) 41.1 kg/m2 Last Menstrual Period 7854754 2 Parity 1 Results Test Acquired Date Facility Test Result H/L Range Note Laboratory test 09/15/2019 [facility] Glucose 1 HR 116 mg/dL Normal 70-160 1 [place] [address] Post Prandial [phone] CBC With No 09/15/2019 [facility] White Blood 10.6 Normal 3.5- 10.8 [place] [address] Count 10^3/uL [phone] Red Blood Count 3.81 10^6/uL Normal 3.70-4.87 [...] Normal 7.4-10.4 Tot Prot 24HR Urine 07/30/2019 [facility] Urine Collection 24 [place] [address] Time OB [phone] Urine Total Volume OB 1800 mL Ur TP Concentration Obstetric 8 mg/dL Ur Tot Protein/24Hr Obstetric 144 mg/24Hr Normal 0-165 Comp Metabolic 07/06/2019 [facility] Sodium 137 mmol/L Normal 135-145 Panel [place], [place] [address] [phone] Potassium 4.0 mmol/L Normal 3.5-5.0 Chloride 106 [...] Egfr Non- 128.1 >60 Egfr 155.0 >60 2 Laboratory test 07/06/2019 [facility] Uric Acid 4.5 mg/dL Normal 2.3-6.6 3 [place] [address] [phone] CBC With No Diff 07/06/2019 [facility] White 11.4 High 3.5- 10.8 [place] [address] Blood 10^3/uL [phone] Count Red Blood Count 4.23 10^6/uL Normal 3.70-4.87 Hemoglobin 12.3 g/dL Normal 12.0-16.0 Hematocrit 37 % Normal 35-47 Mean Corpuscular Volume 88 fL Normal 80-97 Mean Corpuscular Hemoglobin 29 pg Normal 27-31 Mean Corpuscular HGB Conc 33 g/dL Normal 31-36 Red Cell Distribution Width 14 % Normal 10-15 Platelet Count 295 10^3/uL Normal 150-450 Mean Platelet Volume 9.2 fL Normal 7.4-10.4 Laboratory 06/17/2019 [facility] Glucose 1 HR 88 mg/dL Normal 70-160 4 [place] [address] Post Prandial [phone] Urine Drug 06/09/2019 [facility] Urine Negative 5 Comp 20 [place] [address] Amphetamine ng/mL [phone] Urine Barbiturates Negative ng/mL 6 Urine Benzodiazepines Negative ng/mL 7 Urine Cocaine Negative ng/mL 8 Urine Phencyclidine Negative ng/mL Cutoff: 25 Urine Tetrahydrocannabinol Negative ng/mL Cutoff: 50 9 Creatinine, Urine 165.8 mg/dL Specific [place] 1.016 pH 6.1 Oxidants Negative 10 Adulterants Comment Normal Codeine, Ur Not Detected ng/mL Cutoff: 25 11 Wezoofh-1-lemx-glucuronide, Ur Not Detected ng/mL 12 Morphine, Ur Not Detected ng/mL Cutoff: 25 13 Niuwmrfn-8-npzr-glucuronide, U Not Detected ng/mL 14 6-monoacetylmorphine, Ur Not Detected ng/mL Cutoff: 25 15 Hydrocodone, Ur Not Detected ng/mL Cutoff: 25 16 Norhydrocodone, Ur Not Detected ng/mL Cutoff: 25 17 Dihydrocodeine, Ur Not Detected ng/mL Cutoff: 25 18 Hydromorphone, Ur Not Detected ng/mL Cutoff: 25 19 Uxngretanbgwp9zuqnmkuhlkzdfqy Not Detected ng/mL 20 Oxycodone, Ur Not Detected ng/mL Cutoff: 25 21 Noroxycodone, Ur Not Detected ng/mL Cutoff: 25 22 Oxymorphone, Ur Not Detected ng/mL Cutoff: 25 23 Cpzqedafnyc-3-pcvp-glucuronide Not Detected ng/mL 24 Noroxymorphone, Ur Not Detected ng/mL Cutoff: 25 25 Fentanyl, Ur Not Detected ng/mL Cutoff: 2 26 Norfentanyl, Ur Not Detected ng/mL Cutoff: 2 27 Meperidine, Ur Not Detected ng/mL Cutoff: 25 28 Normeperidine, Ur Not Detected ng/mL Cutoff: 25 29 Naloxone, Ur Not Detected ng/mL Cutoff: 25 30 Ytlbhfem-2-ozaz-glucuronide, U Not Detected ng/mL 31 Methadone, Ur [...] Ur Not Detected ng/mL Cutoff: 50 39 Vxaaogivkw-ugid-okctcgnhjav, U Not Detected ng/mL 40 Buprenorphine, Ur Not Detected ng/mL Cutoff: 5 41 Norbuprenorphine, Ur Not Detected ng/mL Cutoff: 5 42 Norbuprenorphine glucuronide Not Detected ng/mL Cutoff: 20 43 Opioid Interpretation See Comment 44 GC/Chlamydia Dna 06/09/2019 [facility] Chlamydia [place] [address] trachomatis Carol [phone] Neisseria gonorrhoeae (GC) Carol Negative Negative Urine Culture And 05/13/2019 [facility] Urine SEE RESULT 45 [place] [address] Culture BELOW [phone] Laboratory test 05/13/2019 [facility] TSH 0.90 Normal 0.34 46 [place] [address] mcIU/mL -5.6 [phone] 0 T4 Free 0.86 ng/dL Normal 0.61-1.12 47 HIV 1&2 p24 05/13/2019 [facility] HIV 4th Non[place] [address] Generation [phone] Lead 05/13/2019 [facility] Lead,Venous, B < 1.0 g/dL 0.0- 4.9 48 [place] [address] [phone] Venous/Capillary Venous Submitting Laboratory Phone [phone] Type And Screen 05/13/2019 [facility] Patient Blood Type O Positive [place], [place] [address] [phone] Antibody Screen NEGATIVE CBC With No 05/13/2019 [facility] White Blood 9.0 10^3/uL Normal 3.5-10.8 [place] [address] Count [phone] Red Blood Count 4.36 10^6/uL Normal 3.70-4.87 Hemoglobin 13.1 g/dL Normal 12.0-16.0 Hematocrit 39 % Normal 35-47 Mean Corpuscular Volume 89 fL Normal 80-97 Mean Corpuscular Hemoglobin 30 pg Normal 27-31 Mean Corpuscular HGB Conc 34 g/dL Normal 31-36 Red Cell Distribution Width 14 % Normal 10-15 Platelet Count 324 10^3/uL Normal 150-450 Mean Platelet Volume 9.4 fL Normal 7.4-10.4 PNL No 05/13/2019 [facility] Rubella Screen Immune Immune 50 [place] [address] [phone] Hemoglobin A1c 5.3 % Normal 4.0-5.6 51 Hepatitis B Surface Ag Negative Negative 52 Syphillis Igg W/Reflex RPR Negative Negative 53 1 [id number] 2 Because ethnic data is not always readily [...] 15-29 5 Kidney failure <15 (or dialysis) 3 [id number] 4 [id number] 5 REFERENCE VALUE Cutoff: 500 6 REFERENCE VALUE Cutoff: 200 7 REFERENCE VALUE Cutoff: 100 8 REFERENCE VALUE Cutoff: 150 9 ADDITIONAL INFORMATION This report is intended for use in clinical monitoring or management of patients. It is not intended for use in employment-related testing. Test Performed by: [facility] [employer] [facility] [address] [place] [address] Content Management Consultant: Jaskaran Smith M.D. Ph.D.; CLIA# [id number] 10 REFERENCE VALUE Cutoff: 200 mg/L 11 Tylenol 3 12 Metabolite of codeine REFERENCE VALUE Cutoff: 100 13 Syeda Nascimento, Contin; Also a minor metabolite (10%) of codeine and can be seen in low concentrations (<2,000 ng/mL) with poppy seed ingestion. 14 Metabolite of morphine REFERENCE VALUE Cutoff: 100 15 Metabolite of heroin 16 Lortab, [place], Vicodin; Also a very minor metabolite of [...] developed and its performance characteristics determined by [facility] in a manner consistent with CLIA requirements. This test has not been cleared or approved by the U.S. Food and Drug Administration. 45 SEE RESULT BELOW Name: ANNE MARIE FLORENCE : [address]: NEMESIO Akins Acct: [id number] Unit: [id number] AGE: 33 Location: [facility] Re05/13/19 SEX: F Status: REG REF SPEC: [id number] KATHRINE: 05/13/19-[address]: NEMESIO Akins REQ: [id number] RECD: 05/14/19 STATUS: COMP _ SOURCE: URINE SPDESC: ORDERED: Urine Culture COMMENTS: [id number] Procedure Result Reported Site Urine Culture Final 05/15/19- 1319 ML No growth of clinically significant organisms * ML - Main Lab . END OF REPORT DEPARTMENT OF PATHOLOGY, [address] [place] [address] Geoffrey Lopez M.D. Director BHARTI # [id number] ADDITIONAL INFORMATION Testing performed by Inductively Coupled Plasma-Mass Spectrometry (ICP-MS). This test was developed and its performance characteristics determined by [facility] in a manner consistent with CLIA requirements. This test has not been cleared or approved by the U.S. Food and Drug Administration. 49 Test Performed by: [facility] [address] [facility], [place] [address] Content Management Consultant: Jaskaran Smith M.D. Ph.D.; CLIA# [id number] 50 [id number] 51 Therapeutic target for the treatment of diabetes mellitus patients is <7% HBA1C, and in selective patients <6.0%. Please refer to [place] [employer] diabetic care guidelines for further information. 52 [id number] Procedures Date Code Description Status 11/03/2019 74793 Non-Stress Test Completed 10/27/2019 65506 Non-Stress Test Completed 09/29/2019 24071 Echography Uterus Follow-Up Or Repeat Completed 09/01/2019 85224 Echography Uterus Follow-Up Or Repeat Completed 08/03/2019 85704 Echography Uterus Complete Completed Medical Devices Description [...] 2:40 pm - Td Clark M.D. at [facility]11/25/2019 2:40 pm - Nurses at [facility]11/17/2019 3:00 pm - Nurses at [facility]11/12/2019 3:30 pm - Lissette Fraser MD at [facility]11/12/2019 3:00 pm - Ultrasounds at [facility]11/17/2019 3:30 pm - Vik Martinez JR, DO at [facility]12/16/2019 10:45 am - Jennifer Barahona CNM at [facility]12/08 7:45 am - Quynh Zhong MD at [place] [address]11/25/2019 3:00 pm - Quynh Zhong MD at [facility]06/30/2018 - NEMESIO IslasID02.1 Missed Functional Status Description No Information Available Mental Status Description No Information Available Referrals Description No Information Available
--- OUTSIDE RECORDS SUMMARY | 2019-11-23 05:45 | XMS REPORT | Continuity of Care Document ---
:1985 External Reference #:[id number] Author Name Ultrasounds (transmitted by agent of provider Katy Johnson) Address [address] [place] [address] Care Team Providers Name Role Phone Mina Winters M.D. 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 [phone] Medicine Problems Description No Information Available Social [...] CPT Code Status Date Vaccine Lot # [id number] Given 09/15/2019 Tetnus, Diptheria Toxoids And Acellular Pertussis, [id number] PT > 7Yrs Old [address] Given 01/04/2016 Tetnus, Diptheria Toxoids And Acellular Pertussis, [id number] PT > 7Yrs Old Vital Signs Date Vital Result Comment 05/13/2019 2:44pm BP Systolic 124 mmHg BP Diastolic 82 mmHg Height 63.5 inches 5'3.50" Weight 245.00 lb BMI (Body Mass Index) 42.7 kg/m2 Last Menstrual Period 9792077 3 Parity 1 06/30/2018 10:08am BP Systolic 128 mmHg BP Diastolic 76 mmHg Height 63.5 inches 5'3.50" Weight 236.00 lb BMI (Body Mass Index) 41.1 kg/m2 Last Menstrual Period 6952777 2 Parity 1 Results Test Acquired Date Facility Test Result H/L Range Note Laboratory test 09/15/2019 [facility] Glucose 1 HR 116 mg/dL Normal 70-160 1 [place] [address] Post Prandial [phone] CBC With No 09/15/2019 [facility] White Blood 10.6 Normal 3.5- 10.8 [place] [address] Count 10^3/uL [phone] Red Blood Count 3.81 10^6/uL Normal 3.70-4.87 [...] Normal 7.4-10.4 Tot Prot 24HR Urine 07/30/2019 [facility] Urine Collection 24 [place] [address] Time OB [phone] Urine Total Volume OB 1800 mL Ur TP Concentration Obstetric 8 mg/dL Ur Tot Protein/24Hr Obstetric 144 mg/24Hr Normal 0-165 Comp Metabolic 07/06/2019 [facility] Sodium 137 mmol/L Normal 135-145 Panel [place], [place] [id number] [phone] Potassium 4.0 mmol/L Normal 3.5-5.0 Chloride 106 [...] Egfr 155.0 >60 2 Laboratory test 07/06/2019 [facility] Uric Acid 4.5 mg/dL Normal 2.3-6.6 3 [place] [address] [phone] CBC With No Diff 07/06/2019 [facility] White 11.4 High 3.5- 10.8 [place] [address] Blood 10^3/uL [phone] Count Red Blood Count 4.23 10^6/uL Normal 3.70-4.87 Hemoglobin 12.3 g/dL Normal 12.0-16.0 Hematocrit 37 % Normal 35-47 Mean Corpuscular Volume 88 fL Normal 80-97 Mean Corpuscular Hemoglobin 29 pg Normal 27-31 Mean Corpuscular HGB Conc 33 g/dL Normal 31-36 Red Cell Distribution Width 14 % Normal 10-15 Platelet Count 295 10^3/uL Normal 150-450 Mean Platelet Volume 9.2 fL Normal 7.4-10.4 Laboratory 06/17/2019 [facility] Glucose 1 HR 88 mg/dL Normal 70-160 4 [place] [address] Post Prandial [phone] Urine Drug 06/09/2019 [facility] Urine Negative 5 Comp 20 [place] [address] Amphetamine ng/mL [phone] Urine Barbiturates Negative ng/mL 6 Urine Benzodiazepines Negative ng/mL 7 Urine Cocaine Negative ng/mL 8 Urine Phencyclidine Negative ng/mL Cutoff: 25 Urine Tetrahydrocannabinol Negative ng/mL Cutoff: 50 9 Creatinine, Urine 165.8 mg/dL Specific [place] 1.016 pH 6.1 Oxidants Negative 10 Adulterants Comment Normal Codeine, Ur Not Detected ng/mL Cutoff: 25 11 Owsuvqw-6-qsya-glucuronide, Ur Not Detected ng/mL 12 Morphine, Ur Not Detected ng/mL Cutoff: 25 13 Cfgweqab-7-osij-glucuronide, U Not Detected ng/mL 14 6-monoacetylmorphine, Ur Not Detected ng/mL Cutoff: 25 15 Hydrocodone, Ur Not Detected ng/mL Cutoff: 25 16 Norhydrocodone, Ur Not Detected ng/mL Cutoff: 25 17 Dihydrocodeine, Ur Not Detected ng/mL Cutoff: 25 18 Hydromorphone, Ur Not Detected ng/mL Cutoff: 25 19 Xgmsucjfimmer1gzjdmqqntpgasxp Not Detected ng/mL 20 Oxycodone, Ur Not Detected ng/mL Cutoff: 25 21 Noroxycodone, Ur Not Detected ng/mL Cutoff: 25 22 Oxymorphone, Ur Not Detected ng/mL Cutoff: 25 23 Hkdpvnjzxxk-9-qmxu-glucuronide Not Detected ng/mL 24 Noroxymorphone, Ur Not Detected ng/mL Cutoff: 25 25 Fentanyl, Ur Not Detected ng/mL Cutoff: 2 26 Norfentanyl, Ur Not Detected ng/mL Cutoff: 2 27 Meperidine, Ur Not Detected ng/mL Cutoff: 25 28 Normeperidine, Ur Not Detected ng/mL Cutoff: 25 29 Naloxone, Ur Not Detected ng/mL Cutoff: 25 30 Vzhgfxlo-4-rlzl-glucuronide, U Not Detected ng/mL 31 Methadone, Ur [...] Ur Not Detected ng/mL Cutoff: 50 39 Pebmvmmqxw-vyjy-emhdjrmrihm, U Not Detected ng/mL 40 Buprenorphine, Ur Not Detected ng/mL Cutoff: 5 41 Norbuprenorphine, Ur Not Detected ng/mL Cutoff: 5 42 Norbuprenorphine glucuronide Not Detected ng/mL Cutoff: 20 43 Opioid Interpretation See Comment 44 GC/Chlamydia Dna 06/09/2019 [facility] Chlamydia [place] [address] trachomatis Carol [phone] Neisseria gonorrhoeae (GC) Carol Negative Negative 1 [id number] 2 Because ethnic data is not always [...] 5 Kidney failure <15 (or dialysis) 3 [id number] 4 [id number] 5 REFERENCE VALUE Cutoff: 500 6 REFERENCE VALUE Cutoff: 200 7 REFERENCE VALUE Cutoff: 100 8 REFERENCE VALUE Cutoff: 150 9 ADDITIONAL INFORMATION This report is intended for use in clinical monitoring or management of patients. It is not intended for use in employment-related testing. Test Performed by: [facility] [employer] - [address] [address] Scrap Picker: Jaskaran Smith M.D. Ph.D.; [facility]# [id number] 10 REFERENCE VALUE Cutoff: 200 mg/L 11 Tylenol 3 12 Metabolite of codeine REFERENCE VALUE Cutoff: 100 13 Syeda Nascimento, MS Contin; Also a minor metabolite (10%) of codeine and can be seen in low concentrations (<2,000 ng/mL) with poppy seed ingestion. 14 Metabolite of morphine REFERENCE VALUE Cutoff: 100 15 Metabolite of heroin 16 Lortab, [place], Vicodin; Also a very minor metabolite of [...] developed and its performance characteristics determined by [facility] in a manner consistent with CLIA requirements. This test has not been cleared or approved by the U.S. Food and Drug Administration. Procedures Date Code Description Status 11/12/2019 31859 Biophysical Profile Without Non Stress Test Completed 11/12/2019 45262 Echography Uterus Follow-Up Or Repeat Completed 11/03/2019 89509 Non-Stress Test Completed 10/27/2019 30072 Non-Stress Test Completed 09/29/2019 07124 Echography Uterus Follow-Up Or Repeat Completed 09/01/2019 26102 Echography Uterus Follow-Up Or Repeat Completed 08/03/2019 12445 Echography Uterus Complete Completed Medical Devices Description No Information Available Encounters Description No Information Available Assessments Date Code Description Provider 11/12/2019 O10.013 Pre-existing essential hypertension Lissette Fraser [...] 7:45 am - Lissette Fraser MD at [facility] O R02019 11:00 am - Quynh Zhong MD at [facility]12/04/2019 2:40 pm - Td Clark M.D. at [facility]11/25/2019 2:40 pm - Nurses at [facility]2019 3:00 pm - Nurses at [facility]12/16/2019 10:45 am - Jennifer Barahona CNM at [facility]12/09/2019 7:45 am - Quynh Zhong MD at [place] [id number] 3:00 pm - Quynh Zhong MD at [facility]06/30/2018 - Nisha Renner CNMO02.1 Missed Functional Status Description No Information Available Mental Status Description No Information Available Referrals Description No Information Available
--- OUTSIDE RECORDS SUMMARY | 2019-11-23 05:45 | XMS REPORT | Continuity of Care Document ---
:1985 External Reference #:[id number] Author Name Vik Martinez JR, DO (transmitted by agent of provider Alysha Fletcher) Address [address] [facility] [place] [address] Care Team Providers Name Role Phone Mina Winters M.D. 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 [phone] Medicine Problems Description No Information Available Social [...] CPT Code Status Date Vaccine Lot # [id number] Given 09/15/2019 Tetnus, Diptheria Toxoids And Acellular Pertussis, [id number] PT > 7Yrs Old [address] Given 01/04/2016 Tetnus, Diptheria Toxoids And Acellular Pertussis, [id number] PT > 7Yrs Old Vital Signs Date Vital Result Comment 05/13/2019 2:44pm BP Systolic 124 mmHg BP Diastolic 82 mmHg Height 63.5 inches 5'3.50" Weight 245.00 lb BMI (Body Mass Index) 42.7 kg/m2 Last Menstrual Period [id number] 3 Parity 1 06/30/2018 10:08am BP Systolic 128 mmHg BP Diastolic 76 mmHg Height 63.5 inches 5'3.50" Weight 236.00 lb BMI (Body Mass Index) 41.1 kg/m2 Last Menstrual Period 5178253 2 Parity 1 Results Test Acquired Date Facility Test Result H/L Range Note Laboratory test 11/17/2019 [facility] Genital For <pending> [place] [address] GRP B Strep [phone] Only Laboratory test 09/15/2019 [facility] Glucose 1 HR 116 mg/dL Normal 70-160 1 [place] [address] Post Prandial [phone] CBC With No 09/15/2019 [facility] White Blood 10.6 Normal 3.5- 10.8 [place] [address] Count 10^3/uL [phone] Red Blood Count 3.81 10^6/uL Normal 3.70-4.87 [...] Normal 7.4-10.4 Tot Prot 24HR Urine 07/30/2019 [facility] Urine Collection 24 [place] [address] Time OB [phone] Urine Total Volume OB 1800 mL Ur TP Concentration Obstetric 8 mg/dL Ur Tot Protein/24Hr Obstetric 144 mg/24Hr Normal 0-165 Comp Metabolic 07/06/2019 [facility] Sodium 137 mmol/L Normal 135-145 [place] [address] [phone] Potassium 4.0 mmol/L Normal 3.5-5.0 Chloride 106 [...] Egfr 155.0 >60 2 Laboratory test 07/06/2019 [facility] Uric Acid 4.5 mg/dL Normal 2.3-6.6 3 [place] [address] [phone] CBC With No Diff 07/06/2019 [facility] White 11.4 High 3.5- 10.8 [place] [address] Blood 10^3/uL [phone] Count Red Blood Count 4.23 10^6/uL Normal 3.70-4.87 Hemoglobin 12.3 g/dL Normal 12.0-16.0 Hematocrit 37 % Normal 35-47 Mean Corpuscular Volume 88 fL Normal 80-97 Mean Corpuscular Hemoglobin 29 pg Normal 27-31 Mean Corpuscular HGB Conc 33 g/dL Normal 31-36 Red Cell Distribution Width 14 % Normal 10-15 Platelet Count 295 10^3/uL Normal 150-450 Mean Platelet Volume 9.2 fL Normal 7.4-10.4 Laboratory 06/17/2019 [facility] Glucose 1 HR 88 mg/dL Normal 70-160 4 [place] [address] Post Prandial [phone] Urine Drug 06/09/2019 [facility] Urine Negative 5 Comp 20 [place] [address] Amphetamine ng/mL [phone] Urine Barbiturates Negative ng/mL 6 Urine Benzodiazepines Negative ng/mL 7 Urine Cocaine Negative ng/mL 8 Urine Phencyclidine Negative ng/mL Cutoff: 25 Urine Tetrahydrocannabinol Negative ng/mL Cutoff: 50 9 Creatinine, Urine 165.8 mg/dL Specific [place] 1.016 pH 6.1 Oxidants Negative 10 Adulterants Comment Normal Codeine, Ur Not Detected ng/mL Cutoff: 25 11 Nrcghpc-8-ents-glucuronide, Ur Not Detected ng/mL 12 Morphine, Ur Not Detected ng/mL Cutoff: 25 13 Kleqfnah-9-shnx-glucuronide, U Not Detected ng/mL 14 6-monoacetylmorphine, Ur Not Detected ng/mL Cutoff: 25 15 Hydrocodone, Ur Not Detected ng/mL Cutoff: 25 16 Norhydrocodone, Ur Not Detected ng/mL Cutoff: 25 17 Dihydrocodeine, Ur Not Detected ng/mL Cutoff: 25 18 Hydromorphone, Ur Not Detected ng/mL Cutoff: 25 19 Bhhmkhaaenims1qsqkxwveefqelex Not Detected ng/mL 20 Oxycodone, Ur Not Detected ng/mL Cutoff: 25 21 Noroxycodone, Ur Not Detected ng/mL Cutoff: 25 22 Oxymorphone, Ur Not Detected ng/mL Cutoff: 25 23 Wmpzpwxpimq-6-wjmy-glucuronide Not Detected ng/mL 24 Noroxymorphone, Ur Not Detected ng/mL Cutoff: 25 25 Fentanyl, Ur Not Detected ng/mL Cutoff: 2 26 Norfentanyl, Ur Not Detected ng/mL Cutoff: 2 27 Meperidine, Ur Not Detected ng/mL Cutoff: 25 28 Normeperidine, Ur Not Detected ng/mL Cutoff: 25 29 Naloxone, Ur Not Detected ng/mL Cutoff: 25 30 Rkhbxkhw-6-xaxt-glucuronide, U Not Detected ng/mL 31 Methadone, Ur [...] Ur Not Detected ng/mL Cutoff: 50 39 Lpwupbgdhk-gxqi-nkrqyqpbzpy, U Not Detected ng/mL 40 Buprenorphine, Ur Not Detected ng/mL Cutoff: 5 41 Norbuprenorphine, Ur Not Detected ng/mL Cutoff: 5 42 Norbuprenorphine glucuronide Not Detected ng/mL Cutoff: 20 43 Opioid Interpretation See Comment 44 GC/Chlamydia Dna 06/09/2019 [facility] Chlamydia [place] [address] trachomatis Carol [phone] Neisseria gonorrhoeae (GC) Carol Negative Negative 1 [id number] 2 Because ethnic data is not always [...] 5 Kidney failure <15 (or dialysis) 3 [id number] 4 [id number] 5 REFERENCE VALUE Cutoff: 500 6 REFERENCE VALUE Cutoff: 200 7 REFERENCE VALUE Cutoff: 100 8 REFERENCE VALUE Cutoff: 150 9 ADDITIONAL INFORMATION This report is intended for use in clinical monitoring or management of patients. It is not intended for use in employment-related testing. Test Performed by: [facility] [address] [place] [address] Family Specialist: Jaskaran Smith M.D. Ph.D.; [place]# [id number] 10 REFERENCE VALUE Cutoff: 200 mg/L 11 Tylenol 3 12 Metabolite of codeine REFERENCE VALUE Cutoff: 100 13 Syeda Nascimento, MS Contin; Also a minor metabolite (10%) of codeine and can be seen in low concentrations (<2,000 ng/mL) with poppy seed ingestion. 14 Metabolite of morphine REFERENCE VALUE Cutoff: 100 15 Metabolite of heroin 16 Lortab, [place], Vicodin; Also a very minor metabolite of [...] developed and its performance characteristics determined by [facility] in a manner consistent with CLIA requirements. This test has not been cleared or approved by the U.S. Food and Drug Administration. Procedures Date Code Description Status 11/12/2019 31172 Biophysical Profile Without Non Stress Test Completed 11/12/2019 37398 Echography Uterus Follow-Up Or Repeat Completed 11/03/2019 93470 Non-Stress Test Completed 10/27/2019 70629 Non-Stress Test Completed 09/29/2019 19884 Echography Uterus Follow-Up Or Repeat Completed 09/01/2019 55758 Echography Uterus Follow-Up Or Repeat Completed 08/03/2019 38728 Echography Uterus Complete Completed Medical Devices Description [...] 7:45 am - Lissette Fraser MD at [facility] O 2019 11:00 am - Quynh Zhong MD at [facility]12/04/2019 2:40 pm - Td Clark M.D. at [facility]11/25/2019 2:40 pm - Nurses at [facility]2019 10:45 am - Jennifer Barahona CNM at [facility]12/09/2019 7:45 am - Quynh Zhong MD at [facility] O 11/25/2019 3:00 pm - Quynh Zhong MD at [facility]06/30/2018 - Nisha Renner, CNMO02.1 Missed Functional Status Description No Information Available Mental Status Description No Information Available Referrals Description No Information Available
--- OUTSIDE RECORDS SUMMARY | 2019-11-23 05:45 | XMS REPORT | Continuity of Care Document ---
:1985 External Reference #:[id number] Author Name Lissette Fraser MD Address [address] [place] [address] Care Team Providers Name Role Phone Mina Winters M.D. 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 Team Information [place] [phone] Medicine Problems Description No Information Available Social [...] CPT Code Status Date Vaccine Lot # [id number] Given 09/15/2019 Tetnus, Diptheria Toxoids And Acellular Pertussis, [id number] PT > 7Yrs Old [address] Given 01/04/2016 Tetnus, Diptheria Toxoids And Acellular Pertussis, [id number] PT > 7Yrs Old Vital Signs Date Vital Result Comment 05/13/2019 2:44pm BP Systolic 124 mmHg BP Diastolic 82 mmHg Height 63.5 inches 5'3.50" Weight 245.00 lb BMI (Body Mass Index) 42.7 kg/m2 Last Menstrual Period [id number] 3 Parity 1 06/30/2018 10:08am BP Systolic 128 mmHg BP Diastolic 76 mmHg Height 63.5 inches 5'3.50" Weight 236.00 lb BMI (Body Mass Index) 41.1 kg/m2 Last Menstrual Period 0721545 2 Parity 1 Results Test Acquired Date Facility Test Result H/L Range Note Laboratory test 09/15/2019 [facility] Glucose 1 HR 116 mg/dL Normal 70-160 1 [place] [address] Post Prandial [phone] CBC With No 09/15/2019 [facility] White Blood 10.6 Normal 3.5- 10.8 [place] [address] Count 10^3/uL [phone] Red Blood Count 3.81 10^6/uL Normal 3.70-4.87 [...] Normal 7.4-10.4 Tot Prot 24HR Urine 07/30/2019 [facility] Urine Collection 24 [place] [address] Time OB [phone] Urine Total Volume OB 1800 mL Ur TP Concentration Obstetric 8 mg/dL Ur Tot Protein/24Hr Obstetric 144 mg/24Hr Normal 0-165 Comp Metabolic 07/06/2019 [facility] Sodium 137 mmol/L Normal 135-145 [place] [address] [phone] Potassium 4.0 mmol/L Normal 3.5-5.0 Chloride 106 [...] Egfr 155.0 >60 2 Laboratory test 07/06/2019 [facility] Uric Acid 4.5 mg/dL Normal 2.3-6.6 3 [place] [address] [phone] CBC With No Diff 07/06/2019 [facility] White 11.4 High 3.5- 10.8 [place] [address] Blood 10^3/uL [phone] Count Red Blood Count 4.23 10^6/uL Normal 3.70-4.87 Hemoglobin 12.3 g/dL Normal 12.0-16.0 Hematocrit 37 % Normal 35-47 Mean Corpuscular Volume 88 fL Normal 80-97 Mean Corpuscular Hemoglobin 29 pg Normal 27-31 Mean Corpuscular HGB Conc 33 g/dL Normal 31-36 Red Cell Distribution Width 14 % Normal 10-15 Platelet Count 295 10^3/uL Normal 150-450 Mean Platelet Volume 9.2 fL Normal 7.4-10.4 Laboratory 06/17/2019 [facility] Glucose 1 HR 88 mg/dL Normal 70-160 4 [place] [address] Post Prandial [phone] Urine Drug 06/09/2019 [facility] Urine Negative 5 Comp 20 [place] [address] Amphetamine ng/mL [phone] Urine Barbiturates Negative ng/mL 6 Urine Benzodiazepines Negative ng/mL 7 Urine Cocaine Negative ng/mL 8 Urine Phencyclidine Negative ng/mL Cutoff: 25 Urine Tetrahydrocannabinol Negative ng/mL Cutoff: 50 9 Creatinine, Urine 165.8 mg/dL Specific [place] 1.016 pH 6.1 Oxidants Negative 10 Adulterants Comment Normal Codeine, Ur Not Detected ng/mL Cutoff: 25 11 Vaeiqep-1-jyyo-glucuronide, Ur Not Detected ng/mL 12 Morphine, Ur Not Detected ng/mL Cutoff: 25 13 Soshgjrb-7-yiam-glucuronide, U Not Detected ng/mL 14 6-monoacetylmorphine, Ur Not Detected ng/mL Cutoff: 25 15 Hydrocodone, Ur Not Detected ng/mL Cutoff: 25 16 Norhydrocodone, Ur Not Detected ng/mL Cutoff: 25 17 Dihydrocodeine, Ur Not Detected ng/mL Cutoff: 25 18 Hydromorphone, Ur Not Detected ng/mL Cutoff: 25 19 Mrphjphzrqlwn4pwkogbjiyvipnbv Not Detected ng/mL 20 Oxycodone, Ur Not Detected ng/mL Cutoff: 25 21 Noroxycodone, Ur Not Detected ng/mL Cutoff: 25 22 Oxymorphone, Ur Not Detected ng/mL Cutoff: 25 23 Rxdxjzktkxl-0-spvp-glucuronide Not Detected ng/mL 24 Noroxymorphone, Ur Not Detected ng/mL Cutoff: 25 25 Fentanyl, Ur Not Detected ng/mL Cutoff: 2 26 Norfentanyl, Ur Not Detected ng/mL Cutoff: 2 27 Meperidine, Ur Not Detected ng/mL Cutoff: 25 28 Normeperidine, Ur Not Detected ng/mL Cutoff: 25 29 Naloxone, Ur Not Detected ng/mL Cutoff: 25 30 Qipwwvun-4-juzc-glucuronide, U Not Detected ng/mL 31 Methadone, Ur [...] Ur Not Detected ng/mL Cutoff: 50 39 Ldcgmrlnex-bbex-nxhdfpzbuzw, U Not Detected ng/mL 40 Buprenorphine, Ur Not Detected ng/mL Cutoff: 5 41 Norbuprenorphine, Ur Not Detected ng/mL Cutoff: 5 42 Norbuprenorphine glucuronide Not Detected ng/mL Cutoff: 20 43 Opioid Interpretation See Comment 44 GC/Chlamydia Dna 06/09/2019 [facility] Chlamydia [place] [address] trachomatis Carol [phone] Neisseria gonorrhoeae (GC) Carol Negative Negative 1 [id number] 2 Because ethnic data is not always [...] 5 Kidney failure <15 (or dialysis) 3 [id number] 4 [id number] 5 REFERENCE VALUE Cutoff: 500 6 REFERENCE VALUE Cutoff: 200 7 REFERENCE VALUE Cutoff: 100 8 REFERENCE VALUE Cutoff: 150 9 ADDITIONAL INFORMATION This report is intended for use in clinical monitoring or management of patients. It is not intended for use in employment-related testing. Test Performed by: [facility] [employer] - [address] [address] Medical Billing Associate: Jaskaran Smith M.D. Ph.D.; [facility]# [id number] 10 REFERENCE VALUE Cutoff: 200 mg/L 11 Tylenol 3 12 Metabolite of codeine REFERENCE VALUE Cutoff: 100 13 Syeda Nascimento, MS Contin; Also a minor metabolite (10%) of codeine and can be seen in low concentrations (<2,000 ng/mL) with poppy seed ingestion. 14 Metabolite of morphine REFERENCE VALUE Cutoff: 100 15 Metabolite of heroin 16 Lortab, [place], Vicodin; Also a very minor metabolite of [...] and its performance characteristics determined by [facility] in a manner consistent with CLIA requirements. This test has not been cleared or approved by the U.S. Food and Drug Administration. Procedures Date Code Description Status 11/12/2019 60875 Biophysical Profile Without Non Stress Test Completed 11/12/2019 68906 Echography Uterus Follow-Up Or Repeat Completed 11/03/2019 96450 Non-Stress Test Completed 10/27/2019 50280 Non-Stress Test Completed 09/29/2019 13743 Echography Uterus Follow-Up Or Repeat Completed 09/01/2019 12798 Echography Uterus Follow-Up Or Repeat Completed 08/03/2019 52562 Echography Uterus Complete Completed Medical Devices Description No Information Available Encounters Description No Information Available Assessments Date Code Description Provider 11/12/2019 O99.213 Obesity complicating , third Lissette [...] JR, DO trimester Plan of Treatment Future Appointment(s):12/04/2019 2:40 pm - Td Clark M.D. at [facility]11/25/2019 2:40 pm - Nurses at [facility]11/17/2019 3:00 pm - Nurses at [facility]11/17/2019 3:30 pm - Vik Martinez JR, DO at [facility]2019 10:45 am - Jennifer Barahona CNM at [facility]12/09/2019 7:45 am - Quynh Zhong MD at [place] [address]11/25/2019 3:00 pm - Quynh Zhong MD at [facility]06/30/2018 - NEMESIO IslasMO02.1 Missed Functional Status Description No Information Available Mental Status Description No Information Available Referrals Description No Information Available
[2019-11-23 06:52] LABS: Urine Appearance Cloudy; Urine Bilirubin Negative (Negative); Urine Blood Negative (Negative); Urine Color Yellow; Urine Glucose Negative (Negative); Urine Ketones Negative (Negative); Urine Nitrite Negative (Negative); Urine Protein 1+(30 mg/dL) (Negative); Urine Specific Gravity 1.025 (1.010-1.030); Urine Urobilinogen Negative (Negative)
[2019-11-23 06:54] LABS: Urine Bacteria 1+ (Absent); Urine Red Blood Cell 1+(3-5/hpf) (Absent); Urine Squamous Epithelial Cell Present (Absent); Urine White Blood Cell 3+(>20/hpf) (Absent)
[2019-11-23] MEDS ORDERED: ceFOXitin 2 GM IVPREMIX* 2 GM/50 ML BAG IVPB ONE (07:00)
[2019-11-23 07:07] LABS: ABS Basophils 0.1 10^3/ul (0-0.2); ABS Eosinophils 0.1 10^3/ul (0-0.6); ABS Lymphocytes 2.5 10^3/ul (1.0-4.8); ABS Monocytes 0.6 10^3/ul (0-0.8); ABS Neutrophils 6.4 10^3/ul (1.5-7.7); Eosinophil % 1.5 %; Hematocrit 33 % (35-47); Hemoglobin 11.5 g/dL (12.0-16.0); Lymphocyte % 25.5 %; Mean Corpuscular HGB Conc 34 g/dL (31-36); Mean Corpuscular Hemoglobin 28 pg (27-31); Mean Corpuscular Volume 81 fL (80-97); Mean Platelet Volume 8.7 fL (7.4-10.4); Platelet Count 289 10^3/uL (150-450); Red Blood Count 4.11 10^6 /uL (3.70-4.87); Red Cell Distribution Width 14 % (10-15); White Blood Count 9.7 10^3/uL (3.5-10.8)
[2019-11-23 07:09] LABS: Urine Benzodiazepine Screen None Detected (None Detect); Urine Opiates Screen None Detected (None Detect)
[2019-11-23] MEDS ORDERED: Sodium Citrate/Citric Acid* 15 ML UDC ONE (07:55)
[2019-11-23] MEDS ORDERED: Morphine PF AMP (0.5MG/ML)* 5 MG/10 ML AMP ONE (08:05)
[2019-11-23] MEDS ORDERED: Scopolamine PATCH Remove* 1 NOTE MISC PATCH OFF ONE (08:15)
[2019-11-23] MEDS ORDERED: OXYTOCIN* 10 UNITS/ML 1 ML VIAL ONE (08:49)
[2019-11-23] MEDS ORDERED: fentaNYL* 50 MCG/ML 2 ML VIAL (100 MCG VIAL) IV PRN (08:51)
[2019-11-23] MEDS ORDERED: Naloxone* 0.4 MG/ML 1 ML VIAL IV PRN ×2 (08:51→08:52)
[2019-11-23] MEDS ORDERED: Ondansetron INJ* 2 MG/ML VIAL IV PRN ×2 (08:51→08:52)
[2019-11-23] MEDS ORDERED: diPHENhydraMINE IV* 50 MG/ML 1 ml VIAL (BENADRYL) IV PRN (08:52)
[2019-11-23] MEDS ORDERED: DiMENhydriNATE IV* 50 MG/ML VIAL IV PUSH PRN (08:52)
[2019-11-23] MEDS ORDERED: Scopolamine 1.5 mg* PATCH TRANSDERM PRN (08:52)
[2019-11-23] MEDS ORDERED: Ketorolac INJ* 30 MG/ML 1 ML VIAL ONE (08:57)
[2019-11-23] MEDS ORDERED: Scopolamine 1.5 mg* PATCH TRANSDERM ONE (10:00)
[2019-11-23] MEDS ORDERED: oxyCODONE TAB* 5 MG TAB PO PRN (11:16)
[2019-11-23] MEDS ORDERED: Glycerin ADULT SUPP PR PRN (11:16)
[2019-11-23] MEDS ORDERED: Dibucaine 1% 28.35 GM TUBE PR PRN (11:16)
[2019-11-23] MEDS ORDERED: Witch Hazel PAD* JAR TOPICAL PRN (11:16)
[2019-11-23] MEDS ORDERED: Lactated Ringers 1000 ML Bag* 1,000 ML IV SCH (12:00)
[2019-11-23] MEDS ORDERED: Oxytocin in LR* 20 UNITS/1,000 ML BAG IVPB SCH (12:00)
[2019-11-23] MEDS: Simethicone TAB* 80 MG TAB.CHEW PO SCH ×3 (12:07→21:28)
[2019-11-23] MEDS: Docusate CAP* 100 MG PO SCH ×2 (12:07→21:27)
--- NOTE | 2019-11-23 12:53 | OP ---
DATE OF OPERATION: 11/23/19 - ROOM #117 DATE OF : 87 SURGEON: Quynh Zhong MD BUILDING SERVICES SUPERVISOR: Lissette Fraser MD SECOND OPERATIONS RESEARCH SCIENTIST: Tameka Ortiz CNM ANESTHESIOLOGIST: Dr. Bueno. ANESTHESIA: Spinal. PRE-OP DIAGNOSIS: 37 and 0/7th weeks, mild preeclampsia, desires repeat section. POST-OP DIAGNOSIS: 37 and 0/7th weeks, mild preeclampsia, desires repeat section, delivered. OPERATIVE PROCEDURE: A repeat low transverse section with vacuum extraction. ESTIMATED BLOOD LOSS: 700 cc. URINE OUTPUT: 250 cc of clear yellow urine. FLUIDS: 1700 cc of crystalloid. FINDINGS: Revealed a vertex female infant, Apgars 8 at 1 minute, 9 at 5 minutes. No meconium, no nuchal cord. Left occiput transverse, nonengaged head. Normal-appearing tubes and ovaries bilaterally. Normal-appearing placenta, 3-vessel cord manually extracted and intact. Female infant, 7 pounds and 5 ounces. COMPLICATIONS: None apparent. DISPOSITION: Stable to recovery room. DESCRIPTION OF PROCEDURE: The patient was placed in dorsal lithotomy position. The abdomen was prepped and draped in a sterile standard fashion. Anesthesia was tested to appropriate level. The patient was identified with universal protocol for correct procedure, position, and patient. Incision was made through prior incision using a scalpel. This was carried down through the fascia. Fascia was scored in the midline, extended laterally and superiorly using curved Cummings scissors. The fascia was superiorly and inferiorly with blunt and sharp dissection. The peritoneum was then entered bluntly. Bladder blade was then inserted. Lower uterine segment was identified, tented up with an Allis. An incision was made with scalpel. This incision was extended laterally and superiorly using bandage scissors. Amniotomy was created for clear fluid. Infant was found to be nonengaged, LOT. A vacuum was applied x1 and popped off, a second application yielded delivery of the head with fundal pressure. Anterior, then posterior shoulder delivered. No nuchal cord was appreciated. Cord was allowed to pulse on the field, baby was vigorous and crying on the field for 1 minute. The cord was then milked and clamped and then cut and the infant was handed off to awaiting content producer. Appropriate cord blood was then obtained. Placenta was then manually extracted , noted to be intact and 3-vessel cord. The uterus was exteriorized, wrapped in warm, moist laparotomy sponge, and the uterine cavity was explored and noted to be free of any membranes or placental tissue. The uterine incision itself was then reapproximated in 2 layers, first layer running locked, second layer running imbricated 0 Vicryl. Tubes and ovaries were noted to have normal appearance. Uterus was returned intraabdominally. Colic gutters were lavaged. Hysterotomy site was revisualized and noted to be hemostatic. The peritoneum was then reapproximated using 3-0 Vicryl in a running fashion. Subfascial area was visualized. Hemostasis assured with Bovie coagulation and the fascia itself was then reapproximated using 0 Vicryl x2 in a running fashion. Subcu was lavaged. Hemostasis assured with Bovie coagulation and the subcuticular Camper's fascia was reapproximated using interrupted 3-0 Vicryl. The skin was then reapproximated using 4-0 Monocryl in a subcuticular fashion. All sponge, instrument, and blade counts were correct throughout the case. The patient tolerated the procedure well and went to recovery room in stable condition. [id number]/[facility] #: [id number] LEEANN
[2019-11-23] MEDS: Ketorolac INJ* 30 MG/ML 1 ML VIAL IV PRN ×2 (15:37→22:42)
[2019-11-24] MEDS: Ketorolac INJ* 30 MG/ML 1 ML VIAL IV PRN (05:45)
[2019-11-24 05:54] LABS: ABS Eosinophils 0.1 10^3/ul (0-0.6); ABS Lymphocytes 2.1 10^3/ul (1.0-4.8); ABS Monocytes 0.9 10^3/ul (0-0.8); ABS Neutrophils 8.1 10^3/ul (1.5-7.7); Hematocrit 28 % (35-47); Hemoglobin 9.6 g/dL (12.0-16.0); Lymphocyte % 18.6 %; Mean Corpuscular HGB Conc 34 g/dL (31-36); Mean Corpuscular Hemoglobin 28 pg (27-31); Mean Corpuscular Volume 82 fL (80-97); Mean Platelet Volume 8.1 fL (7.4-10.4); Platelet Count 227 10^3/uL (150-450); Red Blood Count 3.42 10^6 /uL (3.70-4.87); Red Cell Distribution Width 14 % (10-15); White Blood Count 11.2 10^3/uL (3.5-10.8)
[2019-11-24] MEDS: Simethicone TAB* 80 MG TAB.CHEW PO SCH ×4 (08:52→20:22)
[2019-11-24] MEDS: Docusate CAP* 100 MG PO SCH ×4 (08:52→20:28)
[2019-11-24] MEDS: Ferrous Gluconate TAB* 324 MG TAB PO SCH ×2 (08:52→20:22)
[2019-11-24] MEDS ORDERED: Acetaminophen TAB* 325 MG PO PRN (11:16)
[2019-11-24] MEDS: Ibuprofen TAB* 600 MG PO PRN ×2 (11:45→18:20)
[2019-11-25] MEDS: Ibuprofen TAB* 600 MG PO PRN ×3 (00:05→11:15)
[2019-11-25 08:18] VITALS: BP 150/82
[2019-11-25] MEDS: Docusate CAP* 100 MG PO SCH (09:11)
[2019-11-25] MEDS: Ferrous Gluconate TAB* 324 MG TAB PO SCH (09:11)
[2019-11-25] MEDS: Simethicone TAB* 80 MG TAB.CHEW PO SCH (09:11)
== END 2019-11-25 12:10 | disposition home or self-care (01) | DRG 540 ==
LOC: MCHNUR 05:41 → MCHOB 05:41 → UNDOADMIN 05:41
PROVIDERS: ADMIT Obstetrics & Gynecology; ATTEND Obstetrics & Gynecology
PROC: 10D00Z1 Extraction of Products of Conception, Low, Open Approach (ICD-10-PCS; principal; 2019-11-23 07:45)
DX: O14.04 Mild to moderate pre-eclampsia, complicating childbirth (principal); O34.211 Maternal care for low transverse scar from previous cesarean delivery; O90.81 Anemia of the puerperium; D64.9 Anemia, unspecified; Z3A.37 37 weeks gestation of pregnancy; Z37.0 Single live birth
CPT/HCPCS: 36415; 80307; 81003; 81015; 85025; 86850; 86900; 86901; 87086; A9270-GY; G0480; J0694; J1240; J1885; J2590